=== PATIENT | male | born 1970 | race Caucasian/White ===

== ENCOUNTER 2023-01-17 07:19 | Emergency (ER) | payer OTHER, SELFPAY ==
[2023-01-17] VITALS (7 sets, daily range): BP systolic 124–172; BP diastolic 52–79; PULSE 70–88; RESP 15–26; TEMP 35.8–36.6; O2SAT 94–98; BMI 76.5
--- NOTE | ~2023-01-17 | US_ITS ---
EXAMINATION: US VENOUS ULTRASOUND WITH DOPPLER LOWER EXTREMITY, BILATERAL CLINICAL INFORMATION: Bilateral lower extremity edema COMPARISON: None available. TECHNIQUE: Ultrasound of the deep veins is performed from the hip to the calf with compression sonography and color and pulse Doppler assessment. Spectral analysis with color-flow imaging is performed. FINDINGS: Examination is limited by habitus. RIGHT: There is normal venous compression and respiratory variation and augmented flow. The visualized common femoral vein, superficial femoral vein, profunda femoral vein, popliteal vein, and the trifurcation region shows no evidence of deep venous thrombosis. There is no significant popliteal fossa cyst. LEFT: There is normal venous compression and respiratory variation and augmented flow. The visualized common femoral vein, superficial femoral vein, profunda femoral vein, popliteal vein, and the trifurcation region shows no evidence of deep venous thrombosis. There is no significant popliteal fossa cyst. US/US venous duplex LE BI IMPRESSION: No DVT demonstrated in the right or left lower extremity.
--- NOTE | ~2023-01-17 | XR_ITS ---
EXAMINATION: XR CHEST 2 VIEW CLINICAL INFORMATION: Asthma and shortness of breath. Productive cough. COMPARISON: None TECHNIQUE: PA and lateral views of the chest obtained. FINDINGS: The lungs are clear. There are no pleural effusions. The cardiomediastinal silhouette is normal. XR/XR chest 2V IMPRESSION: No acute cardiopulmonary disease.
--- NOTE | 2023-01-17 07:26 | ECG_ITS ---
Test Reason : DIFF BEATHING Blood Pressure : / mmHG Vent. Rate : 073 BPM Atrial Rate : 073 BPM P-R Int : 152 ms QRS Dur : 092 ms QT Int : 422 ms P-R-T Axes : 042 004 044 degrees QTc Int : 464 ms Normal sinus rhythm Normal ECG No previous ECGs available Referred By: Generic ED Physician Electronically Signed By:TALI HAMPTON MD
[2023-01-17 07:49] LABS: MANUAL DIFF FLAG NO
[2023-01-17 07:51] LABS: Basophils Percent Auto 0.3 % (0-2); Eosinophils Absolute Auto 0.3 X10*3/uL (0.0-0.4); Eosinophils Percent Auto 1.7 % (0-4); Hematocrit 40.3 % (42.0-52.0); Hemoglobin 12.5 g/dl (14.0-18.0); Imm Gran Abs Auto 0.07 X10*3/uL (0.00-0.03); Imm Gran Pct Auto 0.5 % (0.0-0.4); Lymphocytes Absolute Auto 2.9 X10*3/uL (1.2-4.9); Lymphocytes Percent Auto 20.1 % (20-40); Mean Corpuscular Hemoglobin 25.8 pg (27.0-33.0); Mean Corpuscular Volume 83.1 fL (80.0-98.0); Mean Platelet Volume 8.8 fL (9.4-12.4); Monocytes Percent Auto 6.9 % (2-11); Neutrophils Absolute Auto 10.2 x10*3/uL (2.0-8.3); Neutrophils Percent Auto 70.5 % (45-73); Platelet Count 222 X10*3/uL (160-400); Red Blood Count 4.85 X10*6/uL (4.60-5.80); White Blood Count 14.5 X10*3/uL (4.8-10.8)
[2023-01-17 08:04] LABS: Alanine Aminotransferase 24 U/L (0-40); Albumin Level 3.7 g/dL (3.5-5.0); Alkaline Phosphatase 61 U/L (39-117); Anion Gap 9 (12-20); Aspartate Amino Transferase 20 U/L (5-37); Bilirubin Total 0.5 mg/dL (0.0-1.0); Blood Urea Nitrogen 14 mg/dL (9-16); Carbon Dioxide 30 mmol/L (22-29); Chloride 103 mmol/L (96-108); Creatinine Clr Calc Pharmacy 249.1; Estimated Glomerular Filt Rate > 60; Glucose Random 112 mg/dL (60-115); Potassium 4.2 mmol/L (3.3-5.1); Sodium 138 mmol/L (135-145); Total Protein 7.8 g/dL (6.5-8.0)
[2023-01-17 08:08] LABS: COVID-19 Test Negative (Negative); IDNOW Serial# 08D9AD1C; IDNOW Serial# BCCEAD1C; Influenza A Negative (Negative); Influenza B2 Negative (Negative)
[2023-01-17 08:10] LABS: B Type Natriuretic Peptide < 10 pg/mL (<100)
[2023-01-17 08:11] LABS: Troponin-I High Sensitivity 2.9 ng/L (<3.5-35.0)
--- OUTSIDE RECORDS SUMMARY | 2023-01-17 08:41 | XMS_ITS | Continuity of Care Document ---
Author Name Unknown Organization [facility] Address [address] [place] [address]- Care Team Providers Care Instant Potato Processor Name Role Phone Jessa Solorzano Primary Care Physician [phone] [id number] Date(s): 03/13/21 - 04/17/21 [facility] [address] [place] [address]- Attending Physician: Delmar Flores MD Admitting Physician: Delmar Flores MD Referring Physician: Jessa Solorzano Allergies, Adverse Reactions, Alerts Substance Reaction Severity Status penicillins Active Medications Advair Diskus 100 mcg-50 mcg inhalation powder 2, puffs, Inhalation, 2 times a day, Refills 0, Maintenance, 04/10/17 21:14:05 EST Start Date: 04/10/17 Status: Ordered albuterol 0.083% inhalation solution USE 1 VIAL IN NEBULIZER EVERY 6 HOURS NEEDED FOR WHEEZING Start Date: 10/16/18 Status: Ordered albuterol-ipratropium 3 mg-0.5 mg/3 ml inhalation solution 3 mL, Neb, Every 6 hours, PRN Wheezing/Shortness of Breath, # 360 mL, 0 Refills, Maintenance, 10/19/18 12:09:29 EDT, Inhalation Solution Start Date: 10/19/18 Status: Ordered amLODIPine 10 mg oral tablet 10 mg, 1, tablet, By Mouth, Daily, instructions in syriac. 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 Refills 4, Maintenance, 02/16/18 15:21:04 EST, Route to Pharmacy Electronically, [id number] Start Date: 02/16/18 Stop Date: 07/16/18 Status: Ordered ammonium lactate 12% topical cream 1 application, Topically, 2 times a day, Maintenance, 10/16/18 17:49:14 EDT, Cream Start Date: 10/16/18 Status: Ordered atorvastatin 20 mg oral tablet 1 tablet = 20 mg, By Mouth, Daily, # 30 tablet, 0 Refills, Maintenance, 10/16/18 8:54:10 EDT, Tablet Start Date: 10/16/18 Status: Ordered BiPAP Equipment See Instructions, # 1 each, Maintenance, BiPAP 16/10, 10/28/17 14:02:10 EDT, Compound Start Date: 10/28/17 Status: Ordered Claritin 10 mg oral tablet 10 mg, 1, tablet, By Mouth, Daily, # 30 tablet, Refills 0, Maintenance, 08/24/17 11:55:21 EDT Start Date: 08/24/17 Status: Ordered Compression Stockings See Instructions, # 1 kit, Refills 2, Tot. Refills 2, Maintenance, surgical, knee length 20-30 mm Hg, 02/06/19 17:03:52 EST, Compound Start Date: 02/06/19 Status: Ordered docusate sodium 100 mg oral capsule 100 mg, 1, capsule, By Mouth, 2 times a day, # 60 capsule, Refills 0, Tot. Refills 0, Maintenance, 09/05/17 12:32:10 EDT, Print Requisition Start Date: 09/05/17 Status: Ordered Ferrous Sulfate EC 325 mg, By Mouth, Daily, Refills 0, Maintenance, 04/10/17 21:12:56 EST Start Date: 04/10/17 Status: Ordered Furosemide = 40 mg, By Mouth, 2 times a day, 0 Refills, Maintenance, 04/10/17 21:13:21 EST Start Date: 04/10/17 Status: Ordered HydrOXYzine = 25 mg, By Mouth, Daily at bedtime, Maintenance, 10/16/18 17:48:31 EDT Start Date: 10/16/18 Status: Ordered irbesartan 300 mg oral tablet 1 tablet = 300 mg, By Mouth, Daily, 0 Refills, Maintenance, 04/10/17 21:12:45 Start Date: 04/10/17 Status: Ordered Juxta Fit Compression Wraps 20-30 mm/Hg Juxta Fit Compression Wraps 20-30 mm/Hg, See Instructions, # 2 each, Refills 1, Tot. Refills 1, Maintenance, Dx: Venous Insufficiency Wear in am, remove at hs, 03/22/19 9:40:00 EST, Compound Start Date: 03/22/19 Status: Ordered Lymphedema Clinic Lymphedema Clinic, See Instructions, # 2 each, Refills 0, Tot. Refills 0, Maintenance, Please Evaluate and treat for bilateral leg lymphedema, 10/30/20 14:51:00 EDT, Supply Start Date: 10/30/20 Status: Ordered metFORMIN 500 mg oral tablet 2 tablet = 1,000 mg, By Mouth, 2 times a day, 0 Refills, Maintenance, 04/10/17 21:13:55 EST Start Date: 04/10/17 Status: Ordered montelukast 10 mg oral tablet 10 mg, 1, tablet, By Mouth, Daily in PM, # 30 tablet, Refills 0, Maintenance, 04/10/17 21:12:22 Start Date: 04/10/17 Status: Ordered PEG-3350 with Electrolytes (Eqv-NuLYTELY) oral powder for reconstitution See Instructions, as directed, # 1 each, 0 Refills, Maintenance, 03/18/21 15:48:00 EST, [facility], ok to sub for any gallon prep, as directed, 188, cm, 02/01/21 15:56:00 EST, Height, 230,kg, 02/01/21 15:56:00 EST, Dry Weight Start Date: 03/18/21 Status: Ordered pentoxifylline 400 mg oral tablet, extended release 400 mg, 1, tablet, By Mouth, 3 times a day, # 90 tablet, Refills 0, Maintenance, 10/16/18 9:01:11 EDT Start Date: 10/16/18 Status: Ordered predniSONE 10 mg oral tablet 6 tablet = 60 mg, By Mouth, Daily, 6 tabs qday for 2 days; then 5 for 2 days, then 4, then 3, then 2, then 1, # 42 tablet, 0 Refills, Maintenance, 02/01/21 18:31:00 EST, Tablet, [facility], Partial fill upon patient request if the prescript... Start Date: 02/01/21 Status: Ordered Protonix 40 mg oral delayed release tablet 1 tablet = 40 mg, By Mouth, Daily, 0 Refills, Maintenance, 04/10/17 21:13:12 Start Date: 04/10/17 Status: Ordered sertraline 100 mg oral tablet 1 tablet = 100 mg, By Mouth, Daily, # 30 tablet, 0 Refills, Maintenance, 10/16/18 8:55:35 EDT, Tablet Start Date: 10/16/18 Status: Ordered Ventolin 90 mcg Inhaler 2, puffs, Inhalation, 4 times a day, Refills 0, Maintenance, 04/10/17 21:14:11 Start Date: 04/10/17 Status: Ordered Problem List Condition Effective Dates Status Health Status Inform ant Nocturnal hypoxemia(Confirmed) 1 Active Morbid (severe) obesity due to excess calories(Confirmed) Active Severe obesity(Confirmed) Active Obstructive sleep apnea (young lt) (pediatric)(Confirmed) 2 Active 1REM related 2severe Social History Social History Type Response Smoking Status Never smoker entered on: 07/08/17 Sex Medical Equipment Implanted Date:09/05/17Target Site:Abdomen Description Quantity MRI Company Model MESH VENTRALIGHT ECHO CIR 6 - BARD ([id number]) 1 Bard Davol 29 Unknown NI:No Information Assigning Authority: FDA
--- OUTSIDE RECORDS SUMMARY | 2023-01-17 08:41 | XMS_ITS | Continuity of Care Document ---
Author Name Unknown Organization [facility] Address [address] [address]- Care Team Providers Care Transportation Planning Engineer Name Role Phone Jessa Solorzano Primary Care Physician [place] [facility] [place](s): 05/30/19 - 07/01/19 [facility] [address] [address]- [facility] Attending Physician: Golden ESPAÑA, Rosas Carlos Allergies, Adverse Reactions, Alerts Substance Reaction Severity [...] 1, tablet, By Mouth, Daily, instructions in cypriot. 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 Refills 4, Maintenance, 02/16/18 15:21:04 EST, Route to Pharmacy Electronically, [id number], [facility] 1966 Start Date: 02/16/18 Stop Date: [...] EST, Compound Start Date: 03/22/19 Status: Ordered metFORMIN 500 mg oral tablet 2 tablet = 1,000 mg, By Mouth, 2 times a day, 0 Refills, Maintenance, 04/10/17 21:13:55 EST Start Date: 04/10/17 Status: Ordered montelukast 10 mg oral tablet 10 mg, 1, tablet, By Mouth, Daily in PM, # 30 tablet, Refills 0, Maintenance, 04/10/17 21:12:22 Start Date: 04/10/17 Status: Ordered pentoxifylline 400 mg oral tablet, extended release 400 mg, 1, tablet, By Mouth, 3 times a day, # 90 tablet, Refills 0, Maintenance, 10/16/18 9:01:11 EDT Start Date: 10/16/18 Status: Ordered Protonix 40 mg oral delayed release tablet 1 tablet = 40 mg, By Mouth, Daily, 0 Refills, Maintenance, 04/10/17 21:13:12 Start Date: 04/10/17 Status: Ordered sertraline 100 mg oral tablet 1 tablet = 100 mg, By Mouth, Daily, # 30 tablet, 0 Refills, Maintenance, 10/16/18 8:55:35 EDT, Tablet Start Date: 10/16/18 Status: Ordered traZODone 50 mg oral tablet TAKE 1 TO 2 TABLETS BY MOUTH AT BEDTIME NEEDED FOR INSOMNIA Start Date: 10/16/18 Status: Ordered Ventolin 90 mcg Inhaler 2, puffs, Inhalation, 4 times a day, Refills 0, Maintenance, 04/10/17 21:14:11 Start Date: 04/10/17 Status: Ordered Problem List Condition Effective Dates Status Health Status Inform ant Nocturnal hypoxemia(Confirmed) 1 Active Morbid (severe) obesity due to excess calories(Confirmed) Active Obstructive sleep apnea (young lt) (pediatric)(Confirmed) 2 Active 1REM related 2severe Social History Social History Type Response Smoking Status Never smoker entered on: 07/08/17 Sex Medical Equipment Implanted Date:09/05/17Target Site:Abdomen Description Quantity MRI Company Model MESH VENTRALIGHT ECHO CIR 6 - BARD ([id number]) 1 Bard Davol 29 Unknown NI:No Information Assigning Authority: FDA
--- OUTSIDE RECORDS SUMMARY | 2023-01-17 08:41 | XMS_ITS | Continuity of Care Document ---
Author Name Unknown Organization [facility] Address [address] [place] [address]- Care Team Providers Care Cut Tobacco Bulker Name Role Phone Jessa Solorzano Primary Care Physician [place] [facility] [place] - 08/03/19 [facility] [address] [place] [address]- [facility] Attending Physician: Tito Horvath MD Admitting Physician: Tito Horvath MD Referring Physician: Tito Horvath MD Allergies, Adverse Reactions, Alerts Substance Reaction Severity [...] 1, tablet, By Mouth, Daily, instructions in hebrew. 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 Refills 4, Maintenance, 02/16/18 15:21:04 EST, Route to Pharmacy Electronically, [id number], [facility] 1966 Start Date: 02/16/18 Stop [...] MESH VENTRALIGHT ECHO CIR 6 - BARD ([id number]) 1 Bard Davol 29 Unknown NI:No Information Assigning Authority: FDA
--- OUTSIDE RECORDS SUMMARY | 2023-01-17 08:41 | XMS_ITS | Continuity of Care Document ---
Author Name Unknown Organization [facility] ter Address [address] [place] [address]- Care Team Providers Care Daycare Worker Name Role Phone Jessa Solorzano [id number] Date[facility] 03/31/21 - 11/05/[address] [address]- Attending Physician: Delmar Flores MD Admitting Physician: Delmar Flores MD Referring Physician: Janis Funez Allergies, Adverse Reactions, Alerts Substance Reaction Severity Status penicillins Active Medications Advair Diskus 500 mcg-50 mcg inhalation powder 1, inhalation, Inhalation, 2 times a day, rinse mouth and throat after use, # 1 each, Refills 11, Tot. Refills 11, Maintenance, 08/24/21 15:39:00 EDT, Powder, Route to Pharmacy Electronically, [id number], [facility]... Start Date: 08/24/21 Status: Ordered Albuterol (Eqv-ProAir HFA) 90 mcg/inh inhalation aerosol 2 puffs, Inhalation, Every 6 hours, # 1 each, 11 Refills, Maintenance, 08/24/21 15:39:00 EDT, [facility], Partial fill upon patient request if the prescription is for a schedule II opioid drug., 2 puffs Inhalation Every 6 hours, 175, cm, He... Start Date: 08/24/21 Status: Ordered albuterol 0.083% inhalation solution USE 1 VIAL IN NEBULIZER EVERY 6 HOURS NEEDED FOR WHEEZING Start Date: 10/16/18 Status: Ordered albuterol 0.083% inhalation solution 3 mL = 2.5 mg, Inhalation, Every 6 hours, PRN for wheezing/shortness of breath, # 60 each, 11 Refills, Maintenance, 08/24/21 15:39:00 EDT, Solution, [facility], Partial fill upon patient request if the prescription is for a schedule II opio... Start Date: 08/24/21 Status: Ordered albuterol-ipratropium 3 mg-0.5 mg/3 ml inhalation solution 3 mL, Neb, Every 6 hours, PRN Wheezing/Shortness of Breath, # 360 mL, 0 Refills, Maintenance, 10/19/18 12:09:29 EDT, Inhalation Solution Start Date: 10/19/18 Status: Ordered amLODIPine 10 mg oral tablet 10 mg, 1, tablet, By Mouth, Daily, instructions in macanese. 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 Refills 4, Maintenance, 02/16/18 15:21:04 EST, Route to Pharmacy Electronically, [id number], [facility] 1966 Start Date: 02/16/18 [...] 17:48:31 EDT Start Date: 10/16/18 Status: Ordered Incruse Ellipta 62.5 mcg/inh inhalation powder 1 each, Inhalation, Every 24 hours, doses should be taken at least 24 hours apart, # 30 each, 11 Refills, Maintenance, 08/24/21 15:39:00 EDT, Powder, [facility], Partial fill upon patient request if the prescription is for a schedule II opi... Start Date: 08/24/21 Status: Ordered irbesartan 300 mg oral tablet [...] EST, Compound Start Date: 03/22/19 Status: Ordered loratadine 10 mg oral tablet 10 mg, 1, tablet, By Mouth, Daily, # 30 tablet, Refills 11, Tot. Refills 11, Maintenance, 08/24/21 15:39:00 EDT, Route to Pharmacy Electronically, [facility], Partial fill upon patient request if the prescription is for a schedule II opioid... Start Date: 08/24/21 Status: Ordered Lymphedema Clinic Lymphedema Clinic, See [...] each, 0 Refills, Maintenance, 03/18/21 15:48:00 EST, [facility], ok to sub for any [...] 0 Refills, Maintenance, 02/01/21 18:31:00 EST, Tablet, [facility], Partial fill upon patient request [...] EDT, Tablet Start Date: 10/16/18 Status: Ordered Singulair 10 mg oral tablet 10 mg, 1, tablet, By Mouth, Daily, # 30 tablet, Refills 12, Tot. Refills 12, Maintenance, 08/24/21 15:39:00 EDT, Route to Pharmacy Electronically, [facility], Partial fill upon patient request if the prescription is for a schedule II opioid... Start Date: 08/24/21 Status: Ordered Ventolin 90 mcg Inhaler 2, [...] Status Never smoker entered on: 07/08/17 Sex Implantable Device List Procedure Provider Procedure Date Device Type Site Repair Hernia Ventral Laparoscopic Car Jane MD 09/05/17 Unknown Abdomen Device Identifier Serial Number Lot or Batch Number Manufacturing Date Expiration Date Distinct Identification Code MRI Safety Implantable Status Assigning Authority Unknown [id number] Unknown Unknown 09/05/17 Unknown Unknown Active Unknown Care Team Personnel Name: Jessa Solorzano Address: [address] [place] [address]
--- OUTSIDE RECORDS SUMMARY | 2023-01-17 08:41 | XMS_ITS | Continuity of Care Document ---
Author Name Unknown Organization [facility] Address [address] [address]- Care Team Providers Care Career Development Coordinator Name Role Phone Jessa Solorzano Primary Care Physician [place] [facility] [place](s): 06/12/19 - 06/22/19 [facility] [address] [address]- [facility] Attending Physician: Abundio Gastelum Admitting Physician: Abundio Gastelum Referring Physician: AdmtrAbundio Allergies, Adverse Reactions, Alerts Substance Reaction Severity [...] 1, tablet, By Mouth, Daily, instructions in nepali. 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 Refills 4, Maintenance, 02/16/18 15:21:04 EST, Route to Pharmacy Electronically, [id number], [facility] 1966 Start Date: 02/16/18 Stop [...] MESH VENTRALIGHT ECHO CIR 6 - BARD ([id number]) 1 Bard Davol 29 Unknown NI:No Information Assigning Authority: FDA
--- OUTSIDE RECORDS SUMMARY | 2023-01-17 08:41 | XMS_ITS | Continuity of Care Document ---
Author Name Unknown Organization [facility] Address [address] [place] [address]- Care Team Providers Care Information Security Systems Instructor Name Role Phone Keiry ROJAS, Nathaly Primary Care Physician [phone] [id number] Date(s): 09/14/22 - 12/29/22 [facility] [address] [place], [place] [address] Discharge Disposition: A-D/C Home Attending Physician: Yassine Robbins MD Admitting Physician: Yassine Robbins MD Referring Physician: Jeny Cordova NP Allergies, Adverse Reactions, Alerts Substance Reaction Severity Status penicillins Active Medications Advair Diskus 500 mcg-50 mcg inhalation powder 1, inhalation, Inhalation, 2 times a day, rinse mouth and throat after use, # 1 each, Refills 11, Tot. Refills 11, Maintenance, 03/29/22 14:21:00 EST, Powder, Route to Pharmacy Electronically, [id number], [facility], 188, cm, 01... Start Date: 03/29/22 Status: Ordered Albuterol (Eqv-ProAir HFA) 90 mcg/inh inhalation aerosol 2 puffs, Inhalation, Every 6 hours, # 6.7 Gm, 11 Refills, Maintenance, 03/29/22 14:21:00 EST, [facility], Partial fill upon patient request if the prescription is for a schedule II opioid drug., 2 puffs Inhalation Every 6 hours, 188,... Start Date: 03/29/22 Status: Ordered albuterol 0.083% inhalation solution 3 mL = 2.5 mg, Inhalation, Every 6 hours, PRN for wheezing/shortness of breath, # 360 mL, 11 Refills, Maintenance, 03/29/22 14:21:00 EST, Solution, [facility], Partial fill upon patient request if the prescription is for a schedule II... Start Date: 03/29/22 Status: Ordered albuterol 0.083% inhalation solution USE [...] 1, tablet, By Mouth, Daily, instructions in wolof. 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 Refills 4, Maintenance, 02/16/18 15:21:04 EST, Route to Pharmacy Electronically, [id number], [facility] 1966 Start Date: 02/16/18 Stop Date: [...] Maintenance, surgical, knee length 20-30 mm Hg, 12/10/19 17:03:52 EST, Compound Start Date: 02/06/19 Status: [...] taken at least 24 hours apart, # 1 each, 11 Refills, Maintenance, 03/29/22 14:21:00 EST, Powder, [facility], Partial fill upon patient request if the prescription is for a schedule I... Start Date: 03/29/22 Status: Ordered irbesartan 300 mg oral tablet [...] tablet, Refills 11, Tot. Refills 11, Maintenance, 03/29/22 14:21:00 EST, Route to Pharmacy Electronically, [facility], Partial fill upon patient request if the prescription is for a schedule II... Start Date: 03/29/22 Status: Ordered Lymphedema Clinic [facility], See [...] each, 0 Refills, Maintenance, 03/18/21 15:48:00 EST, [address] to sub for any gallon prep, as [...] tablet, Refills 11, Tot. Refills 11, Maintenance, 03/29/22 14:21:00 EST, Route to Pharmacy Electronically, [facility], Partial fill upon patient request if the prescription is for a schedule II... Start Date: 03/29/22 Status: Ordered Ventolin 90 mcg Inhaler 2, puffs, Inhalation, 4 times a day, Refills 0, Maintenance, 04/10/17 21:14:11 Start Date: 04/10/17 Status: Ordered Problem List Condition Confirmation Course Effective Dates Status Health St atus Informant Nocturnal hypoxemia 1 Confirmed Active Morbid (severe) obesity due to excess calories Confirmed Active Severe obesity Confirmed Active Obstructive sleep apnea (adult) (pediatric) 2 Confirmed Active 1REM related 2severe Social History Social History Type Response Smoking Status Never smoker entered on: 07/08/17 Sex Implantable Device List Procedure Provider Procedure Date Device Type Site Repair Hernia Ventral Laparoscopic Car Jane MD 09/05/17 Unknown Abdomen Device Identifier Serial Number Lot or Batch Number Manufacturing Date Expiration Date Distinct Identification Code MRI Safety Implantable Status Assigning Authority Unknown [id number] Unknown Unknown 09/05/17 Unknown Unknown Active Unknown Patient Care team information Care Team Personnel Name: Jailene Mccain RN Position: [facility] Nurse Member Role: Primary Care Nurse Name: Eli Josue RN Position: [facility] RN Member Role: Primary Care Nurse Name: Nathaly Ricci NP Position: Reference Physician Member Role: PCP Address: Address: [address] [place] [address]- Name: Yassine Robbins MD Position: [facility] Physician - Oncology Med Service: Hematology & Oncology Member Role: Admitting Physician Address: Address: [address] [place] [address] [place] [address]- Care Team Related Persons Name: SHIRLEY GURROLA Address: home [address] [facility] [address] [place] [address]
--- OUTSIDE RECORDS SUMMARY | 2023-01-17 08:41 | XMS_ITS | Continuity of Care Document ---
Author Name Unknown Organization [facility] Address [address] [address]- Care Team Providers Care Analyst Competitive Intelligence Name Role Phone Jessa Solorzano Primary Care Physician [place] [facility] [place]21 - 03/26/22 [facility] [address] [facility] [address] [place], [place] [address] Attending Physician: Sebastian Villarreal MD Admitting Physician: Sebastian Villarreal MD Referring Physician: Jessa Solorzano Allergies, Adverse Reactions, Alerts Substance Reaction Severity Status penicillins Active Medications Advair Diskus 500 mcg-50 mcg inhalation powder 1, inhalation, Inhalation, 2 times a day, rinse mouth and throat after use, # 1 each, Refills 11, Tot. Refills 11, Maintenance, 08/24/21 15:39:00 EDT, Powder, Route to Pharmacy Electronically, [id number], [facility] 196... Start Date: 08/24/21 Status: Ordered Albuterol (Eqv-ProAir HFA) 90 mcg/inh inhalation aerosol 2 puffs, Inhalation, Every 6 hours, # 1 each, 11 Refills, Maintenance, 08/24/21 15:39:00 EDT, [facility], Partial fill upon patient request [...] 11 Refills, Maintenance, 08/24/21 15:39:00 EDT, Solution, [facility], Partial fill upon patient request [...] 1, tablet, By Mouth, Daily, instructions in yoruba. 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 Refills 4, Maintenance, 02/16/18 15:21:04 EST, Route to Pharmacy Electronically, [id number], [facility] 1966 Start Date: 02/16/18 [...] 11 Refills, Maintenance, 08/24/21 15:39:00 EDT, Powder, [facility], Partial fill upon patient request [...] 08/24/21 15:39:00 EDT, Route to Pharmacy Electronically, [facility], Partial fill upon patient request [...] each, 0 Refills, Maintenance, 03/18/21 15:48:00 EST, [facility], ok to sub for any gallon prep, [...] 08/24/21 15:39:00 EDT, Route to Pharmacy Electronically, [facility], Partial fill upon patient request [...] MRI Safety Implantable Status Assigning Authority Unknown [id number] Unknown Unknown 09/05/17 Unknown Unknown Active Unknown Patient Care team information Care Team Personnel Name: Jessa Solorzano Position: [facility] Outreach Member Role: PCP Address: Address: [address] [place] [address]- Name: Jailene Mccain RN Position: [facility] PCO RN Member Role: Primary Care Nurse Name: Eli Josue RN Position: [facility] RN Member Role: Primary Care Nurse Care Team Related Persons Name: SHIRLEY GURROLA Address: home [address] [place] [address]
--- OUTSIDE RECORDS SUMMARY | 2023-01-17 08:41 | XMS_ITS | Continuity of Care Document ---
Author Name Unknown Organization [facility] Address [address] [place] [address]- Care Team Providers Care Corporate Quality Assurance Manager Name Role Phone Jessa Solorzano Primary Care Physician [place] [facility] [place] 10/15/19 - 11/14/19 [facility] [address] [place] [address]- [facility] Attending Physician: Abundio Gastelum Admitting Physician: AdmAbundio lux Referring Physician: AdmtrAbundio Allergies, Adverse Reactions, Alerts [...] 1, tablet, By Mouth, Daily, instructions in arabic. 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 Refills 4, Maintenance, 02/16/18 15:21:04 EST, Route to Pharmacy Electronically, [id number], [facility] 1967 Start Date: 02/16/18 Stop [...] MESH VENTRALIGHT ECHO CIR 6 - BARD ([id number]) 1 Bard Davol 29 Unknown NI:No Information Assigning Authority: FDA
--- OUTSIDE RECORDS SUMMARY | 2023-01-17 08:41 | XMS_ITS | Continuity of Care Document ---
Author Name Unknown Organization [facility] Address [address] [place] [address]- Care Team Providers Care Eligibility Manager Name Role Phone Jessa Solorzano Primary Care Physician [phone] [place] [facility] [place] 10[place]22/20 [facility] [address] [place], [place] [address] Attending Physician: Tito Horvath MD Admitting Physician: Tito Horvath MD Referring Physician: Jessa Solorzano Allergies, Adverse [...] 1, tablet, By Mouth, Daily, instructions in bahamian. 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 Refills 4, Maintenance, 02/16/18 15:21:04 EST, Route to Pharmacy Electronically, [id number], [facility] 1966 Start Date: 02/16/18 Stop Date: [...] lt) (pediatric)(Confirmed) 2 Active 1REM related 2severe Vital Signs Most recent to oldest [Reference Range]: 1 Height 188 cm (10/15/20 11:35 AM) Oxygen Saturation [94-100 %] 98 % (10/15/20 11:35 AM) Pulse Rate [55-90 bpm] 73 bpm (10/15/20 11:35 AM) Blood Pressure [90-138/55-84 mm Hg] 130/ 90mm Hg (10/15/20 11:35 AM) Blood pressure sites Arm, left (10/15/20 11:35 AM) Weight Obtained Via Patient/family state d (10/15/20 11:35 AM) Social History Social History Type Response Smoking Status Never smoker entered on: 07/08/17 Sex Medical Equipment Implanted Date:09/05/17Target Site:Abdomen Description Quantity MRI Company Model MESH VENTRALIGHT ECHO CIR 6 - BARD ([id number]) 1 Bard Davol 29 Unknown NI:No Information Assigning Authority: FDA
--- OUTSIDE RECORDS SUMMARY | 2023-01-17 08:41 | XMS_ITS | Continuity of Care Document ---
Author Name Unknown Organization [facility] ter Address [address] [place] [address]- Care Team Providers Care Teletypesetter Monitor Name Role Phone Jessa Solorzano Primary Care Physician [id number] Date(s): 08/05/21 - 08/05/[address] [address]- Encounter Diagnosis Left shoulder pain(Final) - 08/05/21 Discharge Disposition: A-D/C Home Attending Physician: Venu Estrada MD Admitting Physician: Venu Estrada MD Referring Physician: Not on Staff, Referring MD Allergies, Adverse Reactions, Alerts Substance Reaction [...] 1, tablet, By Mouth, Daily, instructions in uruguayan. 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 Refills 4, Maintenance, 02/16/18 15:21:04 EST, Route to Pharmacy Electronically, [id number], [facility] 1967 Start Date: 02/16/18 Stop [...] each, 0 Refills, Maintenance, 03/18/21 15:48:00 EST, [facility], ok to sub for any gallon prep, [...] 0 Refills, Maintenance, 02/01/21 18:31:00 EST, Tablet, [facility], Partial fill upon patient [...] lt) (pediatric)(Confirmed) 2 Active 1REM related 2severe Results Radiology Reports * Exam Date Time Procedure Performing Provider Status 08/05/21 11:18 AM Forearm 2 Views Left Anthony , [place]; A ut (Verified) Notes: (Forearm 2 Views Left) Reason For Exam: with Pain;Trauma RESULT: Forearm 2 Views Left Forearm 2 Views Left Hx of Present Illness: Pt reports he was trying to get a broom in the corner and was having troublereaching it when he went into the wall and hit his left arm and hurt his right knee. Pt denies falling. Pt has a abrasion to left forearm and is having trouble lifting; Reason: Trauma; with Pain; Clinical Question(s): Fracture; Special Instructions: This is a protocol film a COMPARISON: None. FINDINGS: No fractures or bone lesions. The visualized joint spaces are normal. There is soft tissue edema/swelling in the dorsal aspect of the forearm. IMPRESSION: Soft tissue swelling dorsally in the forearm with no acute displaced fracture. I have personally reviewed the images and I agree with this report. WSN: [id number] Ordering Physician: Thomas Sen Dictated By: Lamonte Thompson DO Dictated Date/Time: 08/05/21 11:52 a Reviewed By: Estelita Gambino MD Signed By: Estelita Gambino MD Signed Date/Time: 08/05/21 11:57 am Transcribed By: JOAQUINA Transcribed Date/Time: 08/05/21 11:36 am * Exam Date Time Procedure Performing Provider Status 08/05/21 11:18 AM Knee 1 or 2 Views Right Hillary Cruza ; Auth (Verified) Notes: (Knee 1 or 2 Views Right) Reason For Exam: with Pain;Trauma RESULT: Knee 1 or 2 Views Right Knee 2 Views Right REASON: Trauma; with Pain; Hx of Present Illness: Pt reports he was trying to get a broom in the corner and was having troublereaching it when he went into the wall and hit his left arm and hurt his right knee. Pt denies falling. Pt has a abrasion to left forearm and is having trouble lifting COMPARISON: None. FINDINGS: No acute or healing fracture, dislocation or bone lesion. Mild joint space narrowing of the medial compartment. No osteochondral defects or intra-articular loose bodies. Enthesophyte at the quadriceps tendon and patellar ligament. No evidence of joint effusion. IMPRESSION: No acute abnormality. I have personally reviewed the images and I agree with this report. WSN: [id number] Ordering Physician: Thomas Sen Dictated By: Fady Mcnamara DO Dictated Date/Time: 08/05/21 11:29 a Reviewed By: Pacheco Santana MD Signed By: Pacheco Santana MD Signed Date/Time: 08/05/21 11:34 am Transcribed By: JOAQUINA Transcribed Date/Time: 08/05/21 11:27 am * Exam Date Time Procedure Performing Provider Status 08/05/21 11:18 AM Shoulder Min 2 Views Left Neha Cruz; Auth (Verified) Notes: (Shoulder Min 2 Views Left) Reason For Exam: with Pain;Trauma RESULT: Shoulder Min 2 Views Left Humerus Min 2 Views Left, Shoulder Min 2 Views Left Hx of Present Illness: Pt reports he was trying to get a broom in the corner and was having troublereaching it when he went into the wall and hit his left arm and hurt his right knee. Pt denies falling. Pt has a abrasion to left forearm and is having trouble lifting; Reason: Trauma; with Pain; Clinical Question(s): Fracture COMPARISON: None. FINDINGS: No acute displaced fracture or dislocation. There is an os acromiale. Mild degenerative changes of the AC joint. Glenohumeral joint space appears maintained. No evidence of calcific tendinopathy of the rotator cuff. The visualized left lung is clear. IMPRESSION: No acute osseous abnormality. Mild acromioclavicular degenerative change. I have personally reviewed the images and I agree with this report. WSN: [id number] Ordering Physician: Thomas Sen Dictated By: Lamonte Thompson DO Dictated Date/Time: 08/05/21 11:51 a Reviewed By: Estelita Gambino MD Signed By: Estelita Gambino MD Signed Date/Time: 08/05/21 11:56 am Transcribed By: JOAQUINA Transcribed Date/Time: 08/05/21 11:31 am * Exam Date Time Procedure Performing Provider Status 08/05/21 11:18 AM Humerus Min 2 Views Left Anthony , Din a; Auth (Verified) Notes: (Humerus Min 2 Views Left) Reason For Exam: with Pain;Trauma RESULT: Humerus Min 2 Views Left Humerus Min 2 Views Left, Shoulder Min 2 Views Left Hx of Present Illness: Pt reports he was trying to get a broom in the corner and was having troublereaching it when he went into the wall and hit his left arm and hurt his right knee. Pt denies falling. Pt has a abrasion to left forearm and is having trouble lifting; Reason: Trauma; with Pain; Clinical Question(s): Fracture COMPARISON: None. FINDINGS: No acute displaced fracture or dislocation. There is an os acromiale. Mild degenerative changes of the AC joint. Glenohumeral joint space appears maintained. No evidence of calcific tendinopathy of the rotator cuff. The visualized left lung is clear. IMPRESSION: No acute osseous abnormality. Mild acromioclavicular degenerative change. I have personally reviewed the images and I agree with this report. WSN: [id number] Ordering Physician: Thomas Sen Dictated By: Lamonte Thompson DO Dictated Date/Time: 08/05/21 11:51 a Reviewed By: Estelita Gambino MD Signed By: Estelita Gambino MD Signed Date/Time: 08/05/21 11:56 am Transcribed By: JOAQUINA Transcribed Date/Time: 08/05/21 11:31 am * Exam Date Time Procedure Performing Provider Status 08/05/21 11:18 AM Chest 2 Views Frontal and Lat Anthony , [place]; Auth (Verified) Notes: (Chest 2 Views Frontal and Lat) Reason For Exam: Shortness of Breath, Fever;Other: RESULT: Chest 2 Views Frontal and Lat Chest 2 Views Frontal and Lat Hx of Present Illness: Pt reports he was trying to get a broom in the corner and was having troublereaching it when he went into the wall and hit his left arm and hurt his right knee. Pt denies falling. Pt has a abrasion to left forearm and is having trouble lifting; Reason: Other:; Shortness of Breath, Fever; Clinical Question(s): Pneumonia COMPARISON: Multiple priors, most recent 02/01/2021 FINDINGS: LINES AND TUBES: None. LUNGS AND PLEURA: Clear lungs. Normal pulmonary vascularity. No pleural effusion. No pneumothorax. HEART, MEDIASTINUM AND RIA: Heart is normal in size. Normal upper mediastinal and hilar contour. BONES AND SOFT TISSUES: No acute abnormality. IMPRESSION: No acute abnormality. I have personally reviewed the images and I agree with this report. WSN: [id number] Ordering Physician: Lowell Lacey Dictated By: Lamonte Thompson DO Dictated Date/Time: 08/05/21 11:28 a Reviewed By: Pacheco Santana MD Signed By: Pacheco Santana MD Signed Date/Time: 08/05/21 11:33 am Transcribed By: JOAQUINA Transcribed Date/Time: 08/05/21 11:24 am Vital Signs Most recent to oldest [Reference Range]: 1 2 3 Height 188 cm (08/05/21 1:05 PM) 188 cm (08/05/21 10:11 AM) 188 cm (08/05/21 9:51 AM) Weight 263.2 kg (08/05/21 1:05 PM) 263.2 kg (08/05/21 10:11 AM) 263.2 kg (08/05/21 9:51 AM) Oxygen Saturation [94-100 %] 98 % (08/05/21 3:00 PM) 98 % (08/05/21 1:05 PM) 100 % (08/05/21 9:51 AM) Pulse Rate [55-90 bpm] 77 bpm (08/05/21 3:00 PM) 78 bpm (08/05/21 1:05 PM) 81 bpm (08/05/21 9:51 AM) Body Mass Index [18.5-24.99] 74.47 *>HHI* (08/05/21 1:05 PM) 74.47 *>HHI* (08/05/21 9:51 AM) Blood Pressure [90-138/55-84 mm Hg] 159/98mm Hg *H* (08/05/21 3:00 PM) 163/88mm Hg *H* (08/05/21 1:05 PM) 177/73mm Hg *H* (08/05/21 9:51 AM) Respiratory Rate [16-30 br/min] 22 br/min (08/05/21 3:00 PM) 22 br/min (08/05/21 1:05 PM) 20 br/min (08/05/21 9:51 AM) Temperature [96.8-100.4 DegF] 98.7 DegF (08/05/21 9:51 AM) Mode of Delivery (Oxygen) Room air (08/05/21 3:00 PM) Room air (08/05/21 1:05 PM) Room air (08/05/21 9:51 AM) Blood pressure sites Arm, right (08/05/21 3:00 PM) Arm, right (08/05/21 1:05 PM) Arm, right (08/05/21 9:51 AM) Temperature Route Oral (08/05/21 9:51 AM) Dry Weight 263.2 kg (08/05/21 1:05 PM) 263.2 kg (08/05/21 10:11 AM) 263.2 kg (08/05/21 9:51 AM) Weight Obtained Via Standing scale (08/05/21 9:51 AM) Dry Weight Obtained Via Standing scale (08/05/21 9:51 AM) Social History Social History Type Response Smoking Status Never smoker entered on: 07/08/17 Sex Medical Equipment Implanted Date:09/05/17Target Site:Abdomen Description Quantity MRI Company Model MESH VENTRALIGHT ECHO CIR 6 - BARD ([id number]) 1 Bard Davol 29 Unknown NI:No Information Assigning Authority: FDA
--- OUTSIDE RECORDS SUMMARY | 2023-01-17 08:42 | XMS_ITS | Continuity of Care Document ---
Author Name Unknown Organization [facility] Address [address] [place] [address]- Care Team Providers Care Counter Intelligence Technician Name Role Phone Jessa Solorzano Primary Care Physician [id number] Date(s): 09/14/20 - 09/14/[address] [address]- Encounter Diagnosis Acute asthma exacerbation(Final) - 09/14/20 Discharge Disposition: A-D/C Home Attending Physician: Gerardo Stovall DO Admitting Physician: Gerardo Stovall DO Referring Physician: Not on Staff, Referring MD [...] 1, tablet, By Mouth, Daily, instructions in british. 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 Refills 4, Maintenance, 02/16/18 15:21:04 EST, Route to Pharmacy Electronically, [id number], [facility] 1966 Start Date: 02/16/18 Stop Date: [...] EDT, Compound Start Date: 10/28/17 Status: Ordered Cepacol Extra Strength Sore Throat & Cough 7.5 mg-5 mg oral lozenge 2 lozenge, By Mouth, Every 4 hours, for 7 days, # 18 each, 0 Refills, Acute 09/21/20 20:16:00 EDT, 09/14/20 20:16:00 EDT, [facility], Partial fill upon patient request if the prescription is for a schedule II opioid drug., 2 lozenge By Mout... Start Date: 09/14/20 Stop Date: 09/21/20 Status: Ordered Claritin 10 mg oral tablet [...] EDT Start Date: 10/16/18 Status: Ordered predniSONE 20 mg oral tablet 3 tablet = 60 mg, By Mouth, Daily, for 4 days, # 12 tablet, 0 Refills, Acute 09/18/20 19:52:00 EDT,09/14/20 19:52:00 EDT, Tablet, [facility] 1965, Partial fill upon patient request if the prescription is for a schedule II opioid drug., 188, cm,... Start Date: 09/14/20 Stop Date: 09/18/20 Status: Ordered Protonix 40 mg oral delayed [...] Exam Date Time Procedure Performing Provider Status 09/14/20 8:11 PM Chest 2 Views Frontal and Lat Aisha To; Auth (Verified) Notes: (Chest 2 Views Frontal and Lat) Reason For Exam: Shortness of Breath, Fever;Other: RESULT: Chest 2 Views Frontal and Lat Chest 2 Views Frontal and Lat Hx of Present Illness: Reason: Other:; Shortness of Breath, Fever; Clinical Question(s): Pneumonia COMPARISON: 10/16/2018 FINDINGS: LINES AND TUBES: None. LUNGS AND PLEURA: Mild perihilar interstitial prominence. No consolidation. No pleural effusion. No pneumothorax. HEART, MEDIASTINUM AND RIA: Heart is normal in size. Normal upper mediastinal and hilar contour. BONES AND SOFT TISSUES: No acute abnormality. IMPRESSION: Mild perihilar interstitial prominence suggestive of viral/atypical pneumonia. WSN: [id number] Ordering Physician: Gerardo Stovall Dictated By: Abraham Yen DO Dictated Date/Time: 09/14/20 8:11 pm Reviewed By: Abraham Yen DO Signed By: Abraham Yen DO Signed Date/Time: 09/14/20 8:11 pm Transcribed By: JOAQUINA Transcribed Date/Time: 09/14/20 8:11 pm Vital Signs Most recent to oldest [Reference Range]: 1 2 Height 188 cm (09/14/20 8:19 PM) 188 cm (09/14/20 6:17 PM) Weight 260.6 kg (09/14/20 8:19 PM) 260.6 kg (09/14/20 6:17 PM) Oxygen Saturation [94-100 %] 98 % (09/14/20 8:19 PM) 97 % (09/14/20 6:17 PM) Pulse Rate [55-90 bpm] 71 bpm (09/14/20 8:19 PM) 86 bpm (09/14/20 6:17 PM) Body Mass Index [18.5-24.99] 73.73 *>HHI* (09/14/20 8:19 PM) Blood Pressure [90-138/55-84 mm Hg] 160/ 69mm Hg *H* (09/14/20 8:19 PM) 146/82mm Hg *H* (09/14/20 6:17 PM) Respiratory Rate [16-30 br/min] 20 br/mi n (09/14/20 8:19 PM) 26 br/min (09/14/20 6:17 PM) Temperature [96.8-100.4 DegF] 98.3 DegF (09/14/20 8:19 PM) 98.8 DegF (09/14/20 6:17 PM) Mode of Delivery (Oxygen) Room air (09/14/20 8:19 PM) Room air (09/14/20 6:17 PM) Blood pressure sites Arm, left (09/14/20 8:19 PM) Arm, left (09/14/20 6:17 PM) Temperature Route Oral (09/14/20 8:19 PM) Oral (09/14/20 6:17 PM) Dry Weight 260.6 kg (09/14/20 8:19 PM) 260.6 kg (09/14/20 6:17 PM) Weight Obtained Via Standing scale (09/14/20 6:17 PM) Dry Weight Obtained Via Standing scale (09/14/20 6:17 PM) Social History Social History Type Response Smoking Status Never smoker entered on: 07/08/17 Sex Medical Equipment Implanted Date:09/05/17Target Site:Abdomen Description Quantity MRI Company Model MESH VENTRALIGHT ECHO CIR 6 - BARD ([id number]) 1 Bard Davol 29 Unknown NI:No Information Assigning Authority: FDA
--- OUTSIDE RECORDS SUMMARY | 2023-01-17 08:42 | XMS_ITS | Continuity of Care Document ---
Author Name Unknown Organization [facility] Address [address] [place] [address]- Care Team Providers Care Machine Tool Mechanic Name Role Phone Jessa Solorzano Primary Care Physician [phone] [place] [facility] [place] - 06/28/19 [facility] [address] [address]- [facility] Encounter Diagnosis Obstructive sleep apnea (adult) (pediatric)(Discharge Diagnosis) - 06/21/19 Morbid (severe) obesity due to excess calories(Discharge Diagnosis) - 06/21/19 Attending Physician: Lowell Turcios MD Admitting Physician: Lowell Turcios MD Referring Physician: Jessa Solorzano Allergies, Adverse [...] 1, tablet, By Mouth, Daily, instructions in frisian. 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 Refills 4, Maintenance, 02/16/18 15:21:04 EST, Route to Pharmacy Electronically, [id number], [facility] 1966 Start Date: 02/16/18 [...] lt) (pediatric)(Confirmed) 2 Active 1REM related 2severe Diagnosis Diagnosis Type Effective Dates Health Status Clinical Service Informant Obstructive sleep apnea (adult) (pediatric) Discharge Diagnosis 06/21/19 Morbid (severe) obesity due to excess calories Discharge Diagnosis 06/21/19 Social History Social History Type Response Smoking Status Never smoker entered on: 07/08/17 Sex Medical Equipment Implanted Date:09/05/17Target Site:Abdomen Description Quantity MRI Company Model MESH VENTRALIGHT ECHO CIR 6 - BARD ([id number]) 1 Bard Davol 29 Unknown NI:No Information Assigning Authority: FDA
--- OUTSIDE RECORDS SUMMARY | 2023-01-17 08:42 | XMS_ITS | Continuity of Care Document ---
Author Name Unknown Organization [facility] Address [address] [place] [address]- Care Team Providers Care Orthodontic Technician Assistant Name Role Phone Jessa Solorzano Primary Care Physician [place] [facility] [place] 02/17/19 - 06/17/19 [facility] [address] [place] [address]- [facility] Attending Physician: Tito Horvath MD Admitting Physician: Tito Horvath MD Allergies, Adverse Reactions, [...] 1, tablet, By Mouth, Daily, instructions in amharic. 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 Refills 4, Maintenance, 02/16/18 15:21:04 EST, Route to Pharmacy Electronically, [id number], [facility] 1966 Start Date: 02/16/18 Stop [...] due to excess calories(Confirmed) Active Obstructive sleep apnea(Confirmed) Active Obstructive sleep apnea (young lt) (pediatric)(Confirmed) Active 1REM related Social History Social History Type Response Smoking Status Never smoker entered on: 07/08/17 Sex Medical Equipment Implanted Date:09/05/17Target Site:Abdomen Description Quantity MRI Company Model MESH VENTRALIGHT ECHO CIR 6 - BARD ([id number]) 1 Bard Davol 29 Unknown NI:No Information Assigning Authority: FDA
--- OUTSIDE RECORDS SUMMARY | 2023-01-17 08:42 | XMS_ITS | Continuity of Care Document ---
Author Name Unknown Organization [facility] Address [address] [place] [address]- Care Team Providers Care Box Finisher Name Role Phone Jessa Solorzano Primary Care Physician [phone] [place] [facility] [place] 10/29/19 - 11/28/19 [facility] [address] [place] [address]- [facility] Attending Physician: Abundio Gastelum Admitting Physician: Abundio Gastelum Referring Physician: Abundio Gastelum Allergies, Adverse Reactions, Alerts Substance Reaction Severity [...] 1, tablet, By Mouth, Daily, instructions in tamazight. 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 Refills 4, Maintenance, 02/16/18 15:21:04 EST, Route to Pharmacy Electronically, [id number], [facility] 1966 Start Date: 02/16/18 Stop [...] MESH VENTRALIGHT ECHO CIR 6 - BARD ([id number]) 1 Bard Davol 29 Unknown NI:No Information Assigning Authority: FDA
--- OUTSIDE RECORDS SUMMARY | 2023-01-17 08:42 | XMS_ITS | Continuity of Care Document ---
Author Name Unknown Organization [facility] Address [address] [place] [address]- Care Team Providers Care Trumpet Teacher Name Role Phone Jessa Solorzano Primary Care Physician [phone] [id number] Date(s): 02/01/21 - 02/01/[address] [address]- Discharge Disposition: A-D/C Home Attending Physician: Fran Bloom MD Admitting Physician: Fran Bloom MD Referring Physician: Not on Staff, Referring [...] 1, tablet, By Mouth, Daily, instructions in latvian. 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 Refills 4, Maintenance, 02/16/18 15:21:04 EST, Route to Pharmacy Electronically, [id number], [facility] 1967 Start Date: 02/16/18 Stop [...] Print Requisition Start Date: 09/05/17 Status: Ordered doxycycline monohydrate 100 mg oral capsule 1 capsule = 100 mg, By Mouth, 2 times a day, for 10 days, # 20 capsule, 0 Refills, Acute 02/11/21 18:31:00 EST, 02/01/21 18:31:00 EST, Capsule, [facility], Partial fill upon patient request if the prescription is for a schedule II opioid . Start Date: 02/01/21 Stop Date: 02/11/21 Status: Ordered Ferrous Sulfate EC 325 mg, [...] tablet, 0 Refills, Maintenance, 02/01/21 18:31:00 EST, [facility], Partial fill upon patient request [...] Exam Date Time Procedure Performing Provider Status 02/01/21 5:20 PM Chest 2 Views Frontal and Lat Angie Jackson (Verified) Notes: (Chest 2 Views Frontal and Lat) Reason For Exam: chest pain;Other: RESULT: Chest 2 Views Frontal and Lat Chest 2 Views Frontal and Lat Hx of Present Illness: Hx asthma, increased SOB x 3 weeks, s p covid vaccines; pt also notes pain redness swelling to right foot; Sp02 98% RA,; Reason: Other:; chest pain; Clinical Question(s): CHF COMPARISON: 09/14/2020 FINDINGS: LINES AND TUBES: None. LUNGS AND PLEURA: Clear lungs. Normal pulmonary vascularity. No pleural effusion. No pneumothorax. HEART, MEDIASTINUM AND RIA: Heart is normal in size. Normal upper mediastinal and hilar contour. BONES AND SOFT TISSUES: No acute abnormality. IMPRESSION: No acute abnormality. WSN: [id number] Ordering Physician: Fran Bloom Dictated By: Pipo Bahena MD Dictated Date/Time: 02/01/21 5:21 pm Reviewed By: Pipo Bahena MD Signed By: Pipo Bahena MD Signed Date/Time: 02/01/21 5:21 pm Transcribed By: JOAQUINA Transcribed Date/Time: 02/01/21 5:21 pm Vital Signs Most recent to oldest [Reference Range]: 1 2 Height 188 cm (02/01/21 3:56 PM) 188 cm (02/01/21 3:54 PM) Weight 230 kg (02/01/21 3:56 PM) 230 kg (02/01/21 3:54 PM) Oxygen Saturation [94-100 %] 98 % (02/01/21 6:43 PM) 98 % (02/01/21 3:54 PM) Pulse Rate [55-90 bpm] 82 bpm (02/01/21 6:43 PM) 90 bpm (02/01/21 3:54 PM) Body Mass Index [18.5-24.99] 65.07 *>HHI* (02/01/21 3:54 PM) Blood Pressure [90-138/55-84 mm Hg] 127/ 63mm Hg (02/01/21 6:43 PM) 123/78mm Hg (02/01/21 3:54 PM) Respiratory Rate [16-30 br/min] 22 br/mi n (02/01/21 6:43 PM) 22 br/min (02/01/21 3:54 PM) Temperature [96.8-100.4 DegF] 98.6 DegF (02/01/21 6:43 PM) 97.6 DegF (02/01/21 3:54 PM) Mode of Delivery (Oxygen) Room air (02/01/21 6:43 PM) Room air (02/01/21 3:54 PM) Blood pressure sites Arm, left (02/01/21 6:43 PM) Arm, left (02/01/21 3:54 PM) Temperature Route Oral (02/01/21 6:43 PM) Temporal (02/01/21 3:54 PM) Dry Weight 230 kg (02/01/21 3:56 PM) 230 kg (02/01/21 3:54 PM) Weight Obtained Via Patient/family state d (02/01/21 3:54 PM) Dry Weight Obtained Via Patient/family s tated (02/01/21 3:54 PM) Social History Social History Type Response Smoking Status Never smoker entered on: 07/08/17 Sex Medical Equipment Implanted Date:09/05/17Target Site:Abdomen Description Quantity MRI Company Model MESH VENTRALIGHT ECHO CIR 6 - BARD ([id number]) 1 Bard Davol 29 Unknown NI:No Information Assigning Authority: FDA
--- OUTSIDE RECORDS SUMMARY | 2023-01-17 08:42 | XMS_ITS | Continuity of Care Document ---
Author Name Unknown Organization [facility] Address [address] [place] [address]- Care Team Providers Care Volleyball Commentator Name Role Phone Jessa Solorzano Primary Care Physician [phone] [place] [facility] [place] Date(s): 10/29/19 - 11/05/19 [facility] [address] [place] [address]- [facility] Attending Physician: Tito Horvath MD [...] 1, tablet, By Mouth, Daily, instructions in pakistani. 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 Refills 4, Maintenance, 02/16/18 15:21:04 EST, Route to Pharmacy Electronically, [id number], [facility] 1966 Start Date: [...] Response Smoking Status Never smoker entered on: 5/11/18 Sex Medical Equipment Implanted Date:09/05/17Target Site:Abdomen Description Quantity MRI Company Model MESH VENTRALIGHT ECHO CIR 6 - BARD ([id number]) 1 Bard Davol 29 Unknown NI:No Information Assigning Authority: FDA
--- OUTSIDE RECORDS SUMMARY | 2023-01-17 08:42 | XMS_ITS | Continuity of Care Document ---
Author Name Unknown Organization [facility] Address [address] [place] [address]- Care Team Providers Care Patent Drafter Name Role Phone Jessa Solorzano Primary Care Physician [id number] Date(s): 12/18/20 - 04/17/21 [facility] [address] [place] [address]- Attending Physician: Dimitrios Escamilla MD Admitting Physician: Dimitrios Escamilla MD Referring Physician: Jessa Solorzano Allergies, Adverse [...] 1, tablet, By Mouth, Daily, instructions in canadian. 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 Refills 4, Maintenance, 02/16/18 15:21:04 EST, Route to Pharmacy Electronically, [id number], [facility] Start Date: 02/16/18 Stop Date: [...] each, 0 Refills, Maintenance, 03/18/21 15:48:00 EST, [facility], ok to sub for any [...] 0 Refills, Maintenance, 02/01/21 18:31:00 EST, Tablet, [facility], Partial fill upon patient request [...] MESH VENTRALIGHT ECHO CIR 6 - BARD ([id number]) 1 Bard Davol 29 Unknown NI:No Information Assigning Authority: FDA
--- OUTSIDE RECORDS SUMMARY | 2023-01-17 08:42 | XMS_ITS | Continuity of Care Document ---
Author Name Unknown Organization [facility] Address [address] [place] [address]- Care Team Providers Care Casino Host Name Role Phone Jessa Solorzano Primary Care Physician [phone] [place] [facility] [place] 11/14/20 [facility] [address] [place], [place] [address] Attending Physician: Abundio Gastelum Admitting Physician: Abundio [...] 1, tablet, By Mouth, Daily, instructions in bolivian. 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 Refills 4, Maintenance, 02/16/18 15:21:04 EST, Route to Pharmacy Electronically, [id number], [facility] 1966 Start Date: 02/16/18 [...] MESH VENTRALIGHT ECHO CIR 6 - BARD ([id number]) 1 Bard Davol 29 Unknown NI:No Information Assigning Authority: FDA
--- OUTSIDE RECORDS SUMMARY | 2023-01-17 08:42 | XMS_ITS | Continuity of Care Document ---
Author Name Unknown Organization [facility] Address [address] [place] [address]- Care Team Providers Care Tarper Name Role Phone Jessa Solorzano Primary Care Physician [phone] En[place] [facility] [place] Date(s): 03/18/21 - 04/17/21 [facility] [address] [place] [address]- Attending Physician: Abundio Gastelum Admitting Physician: Abundio Gastelum Referring Physician: Abundio Gastelum Referring Physician: Janis Funez Referring Physician: Keiry Andersen Allergies, Adverse Reactions, Alerts Substance Reaction Severity [...] 1, tablet, By Mouth, Daily, instructions in chilean. 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 Refills 4, Maintenance, 02/16/18 15:21:04 EST, Route to Pharmacy Electronically, [id number], [facility] 1966 Start Date: 02/16/18 [...] each, 0 Refills, Maintenance, 03/18/21 15:48:00 EST, [facility], ok to sub for any [...] 0 Refills, Maintenance, 02/01/21 18:31:00 EST, Tablet, [facility], Partial fill upon patient request [...] MESH VENTRALIGHT ECHO CIR 6 - BARD ([id number]) 1 Bard Davol 29 Unknown NI:No Information Assigning Authority: FDA
--- OUTSIDE RECORDS SUMMARY | 2023-01-17 08:42 | XMS_ITS | Continuity of Care Document ---
Author Name Unknown Organization [facility] Address [address] [place] [address]- Care Team Providers Care Bus Inspector Name Role Phone Jessa Solorzano Primary Care Physician [place] [facility] [place]17[place] - 11/16/19 [facility] [address] [place] [address]- Allergies, Adverse Reactions, Alerts Substance Reaction Severity [...] 1, tablet, By Mouth, Daily, instructions in serbian. 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 Refills 4, Maintenance, 02/16/18 15:21:04 EST, Route to Pharmacy Electronically, [id number], [facility] 1966 Start Date: 02/16/18 Stop [...] MESH VENTRALIGHT ECHO CIR 6 - BARD ([id number]) 1 Bard Davol 29 Unknown NI:No Information Assigning Authority: FDA
--- OUTSIDE RECORDS SUMMARY | 2023-01-17 08:42 | XMS_ITS | Continuity of Care Document ---
Author Name Unknown Organization [facility] Address [address] [address]- Care Team Providers Care Lining Setter Name Role Phone Jessa Solorzano Primary Care Physician En[facility] [place] Date(s): 06/01/19 - 07/12/19 [facility] [address] [address] Attending Physician: Golden ESPAÑA, Rosas Carlos Referring Physician: Jessa Solorzano Allergies, Adverse Reactions, [...] 1, tablet, By Mouth, Daily, instructions in citizen of kiribati. 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 Refills 4, Maintenance, 02/16/18 15:21:04 EST, Route to Pharmacy Electronically, [id number], [facility] 1966 Start Date: 02/16/18 [...] MESH VENTRALIGHT ECHO CIR 6 - BARD ([id number]) 1 Bard Davol 29 Unknown NI:No Information Assigning Authority: FDA
--- OUTSIDE RECORDS SUMMARY | 2023-01-17 08:42 | XMS_ITS | Continuity of Care Document ---
Author Name Unknown Organization [facility] Address [address] [place] [address]- Care Team Providers Care Boat Crew Deck Hand Name Role Phone Jessa Solorzano Primary Care Physician [place] [facility] [place]s): 02/17/19 - 06/17/19 [facility] [address] [place] [address]- [facility] Attending Physician: Tito Horvath MD [...] 1, tablet, By Mouth, Daily, instructions in east timorese. 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 Refills 4, Maintenance, 02/16/18 15:21:04 EST, Route to Pharmacy Electronically, [id number], [facility] 1966 Start Date: 02/16/18 [...] MESH VENTRALIGHT ECHO CIR 6 - BARD ([id number]) 1 Bard Davol 29 Unknown NI:No Information Assigning Authority: FDA
--- OUTSIDE RECORDS SUMMARY | 2023-01-17 08:42 | XMS_ITS | Continuity of Care Document ---
Author Name Unknown Organization [facility] Address [address] [place] [address]- Care Team Providers Care Demand Planner Name Role Phone Jessa Solorzano Primary Care Physician [phone] [place] [facility] [place] 02/06/19 - 02/13/19 [facility] [address] [place] [address]- [facility] Attending Physician: Tito Horvath MD Admitting Physician: [...] 1, tablet, By Mouth, Daily, instructions in german. 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 Refills 4, Maintenance, 02/16/18 15:21:04 EST, Route to Pharmacy Electronically, [id number], [facility] 1966 Start Date: 02/16/18 [...] 04/10/17 21:12:45 Start Date: 04/10/17 Status: Ordered metFORMIN 500 mg oral tablet [...] apnea (young lt) (pediatric)(Confirmed) Active 1REM related Vital Signs Most recent to oldest [Reference Range]: 1 Height 188 cm (02/06/19 4:31 PM) Weight 238.5 kg (02/06/19 4:31 PM) Body Mass Index [18.5-24.99] 67.48 *>HHI* (02/06/19 4:31 PM) Blood Pressure [90-138/55-84 mm Hg] 130/ 80mm Hg (02/06/19 4:31 PM) Blood pressure sites Arm, left (02/06/19 4:31 PM) Weight Obtained Via Patient/family state d (02/06/19 4:31 PM) Social History Social History Type Response Smoking Status Never smoker entered on: 07/08/17 Sex Medical Equipment Implanted Date:09/05/17Target Site:Abdomen Description Quantity MRI Company Model MESH VENTRALIGHT ECHO CIR 6 - BARD ([id number]) 1 Bard Davol 29 Unknown NI:No Information Assigning Authority: FDA
--- OUTSIDE RECORDS SUMMARY | 2023-01-17 08:42 | XMS_ITS | Continuity of Care Document ---
Author Name Unknown Organization [facility] Address [address] [address]- Care Team Providers Care Bowling Ball Engraver Name Role Phone Jessa Solorzano Primary Care Physician En[place] [facility] [place] Date(s): 07/21/21 - 08/20/21 [facility] [address] [facility] [address] [place], [place] [address] Allergies, Adverse Reactions, Alerts Substance Reaction Severity [...] 02/16/18 15:21:04 EST, Route to Pharmacy Electronically, [id number] Start Date: 02/16/18 Stop Date: [...] each, 0 Refills, Maintenance, 03/18/21 15:48:00 EST, [facility], ok to sub for any [...] 0 Refills, Maintenance, 02/01/21 18:31:00 EST, Tablet, [facility], Partial fill upon patient request [...] MESH VENTRALIGHT ECHO CIR 6 - BARD ([id number]) 1 Bard Davol 29 Unknown NI:No Information Assigning Authority: FDA
--- OUTSIDE RECORDS SUMMARY | 2023-01-17 08:42 | XMS_ITS | Continuity of Care Document ---
Author Name Unknown Organization [facility] Address [address] [place] [address]- Care Team Providers Care Judo Instructor Name Role Phone Keiry ROJAS, Nathaly Primary Care Physician [phone] [place] [facility] [place]14[place]22 [facility] [address] [place], [place] [address] Attending Physician: Admtr, Brandon8 Admitting Physician: Admtr, Ar8 Referring Physician: Admtr, Ar8 Allergies, Adverse Reactions, Alerts Substance Reaction Severity Status penicillins Active Medications Advair Diskus 500 mcg-50 mcg inhalation powder 1, inhalation, Inhalation, 2 times a day, rinse mouth and throat after use, # 1 each, Refills 11, Tot. Refills 11, Maintenance, 03/29/22 14:21:00 EST, Powder, Route to Pharmacy Electronically, NCPDP_[id number], [facility], 188, cm, 01... Start Date: 03/29/22 Status: Ordered Albuterol (Eqv-ProAir HFA) 90 mcg/inh inhalation aerosol 2 puffs, Inhalation, Every 6 hours, # 6.7 Gm, 11 Refills, Maintenance, 03/29/22 14:21:00 EST, [facility], Partial fill upon patient request if the prescription is for a schedule II opioid drug., 2 puffs Inhalation Every 6 hours, 188,... Start Date: 03/29/22 Status: Ordered albuterol 0.083% inhalation solution 3 mL = 2.5 mg, Inhalation, Every 6 hours, PRN for wheezing/shortness of breath, # 360 mL, 11 Refills, Maintenance, 03/29/22 14:21:00 EST, Solution, [facility], Partial fill upon patient request [...] 1, tablet, By Mouth, Daily, instructions in northern irish. 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 Refills 4, Maintenance, 02/16/18 15:21:04 EST, Route to Pharmacy Electronically, [id number], [facility] 1966 Start Date: 02/16/18 [...] 11 Refills, Maintenance, 03/29/22 14:21:00 EST, Powder, [facility], Partial fill upon patient request [...] 03/29/22 14:21:00 EST, Route to Pharmacy Electronically, [facility], Partial fill upon patient request [...] each, 0 Refills, Maintenance, 03/18/21 15:48:00 EST, [place] [address], ca to sub for any gallon prep, as [...] 03/29/22 14:21:00 EST, Route to Pharmacy Electronically, [facility], Partial fill upon patient request [...] MRI Safety Implantable Status Assigning Authority Unknown [id number] Unknown Unknown 09/05/17 Unknown Unknown Active Unknown Patient Care team information Care Team Personnel Name: Jailene Mccain RN Position: [facility] Nurse Member Role: Primary Care Nurse Name: Eli Josue RN Position: [facility] RN Member Role: Primary Care Nurse Name: Nathaly Ricci NP Position: Reference Physician Member Role: PCP Address: Address: [address] [place] [address]- Care Team Related Persons Name: SHIRLEY GURROLA Address: home [address] [facility] [address] [place] [address]
--- OUTSIDE RECORDS SUMMARY | 2023-01-17 08:42 | XMS_ITS | Continuity of Care Document ---
Author Name Unknown Organization [facility] Address [address] [place] [address]- Care Team Providers Care Financial Reporting Advisor Name Role Phone Jessa Solorzano Primary Care Physician [phone] Encounter [facility] [place] Date(s): 08/24/21 - 09/23/21 [facility] [address] [place], [place] [address] Allergies, Adverse Reactions, Alerts Substance Reaction Severity Status penicillins Active Medications Advair Diskus 500 mcg-50 mcg inhalation powder 1, inhalation, Inhalation, 2 times a day, rinse mouth and throat after use, # 1 each, Refills 11, Tot. Refills 11, Maintenance, 08/24/21 15:39:00 EDT, Powder, Route to Pharmacy Electronically, [id number], [facility]... Start Date: 08/24/21 Status: Ordered Albuterol (Eqv-ProAir HFA) 90 mcg/inh inhalation aerosol 2 puffs, Inhalation, Every 6 hours, # 1 each, 11 Refills, Maintenance, 08/24/21 15:39:00 EDT, [facility], Partial fill upon patient request [...] 11 Refills, Maintenance, 08/24/21 15:39:00 EDT, Solution, [facility], Partial fill upon patient request [...] 02/16/18 15:21:04 EST, Route to Pharmacy Electronically, [id number], [facility] 1966 Start Date: 02/16/18 Stop [...] 11 Refills, Maintenance, 08/24/21 15:39:00 EDT, Powder, [facility], Partial fill upon patient request [...] 08/24/21 15:39:00 EDT, Route to Pharmacy Electronically, [facility], Partial fill upon patient request [...] each, 0 Refills, Maintenance, 03/18/21 15:48:00 EST, [facility], ok to sub for any [...] 0 Refills, Maintenance, 02/01/21 18:31:00 EST, Tablet, [facility], Partial fill upon patient request [...] 08/24/21 15:39:00 EDT, Route to Pharmacy Electronically, [facility], Partial fill upon patient request [...] MESH VENTRALIGHT ECHO CIR 6 - BARD ([id number]) 1 Bard Davol 29 Unknown NI:No Information Assigning Authority: FDA
--- OUTSIDE RECORDS SUMMARY | 2023-01-17 08:42 | XMS_ITS | Continuity of Care Document ---
Author Name Unknown Organization [facility] Address [address] [address]- Care Team Providers Care Sprayer Automatic Spray Machine Name Role Phone Jessa Solorzano Primary Care Physician En[place] [facility] [place] Date(s): 05/08/19 - 05/18/19 [facility] [address] [address]- [facility] Attending Physician: Abundio Gastelum Admitting Physician: Abundio [...] 1, tablet, By Mouth, Daily, instructions in occitan. 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 Refills 4, Maintenance, 02/16/18 15:21:04 EST, Route to Pharmacy Electronically, [id number], [facility] 1966 Start Date: 02/16/18 [...] MESH VENTRALIGHT ECHO CIR 6 - BARD ([id number]) 1 Bard Davol 29 Unknown NI:No Information Assigning Authority: FDA
--- OUTSIDE RECORDS SUMMARY | 2023-01-17 08:42 | XMS_ITS | Continuity of Care Document ---
Author Name Unknown Organization [facility] Address [address] [place] [address]- Care Team Providers Care Head Teller Name Role Phone Jessa Solorzano Primary Care Physician En[place] [facility] [place] Date(s): 03/27/19 - 07/25/19 [facility] [address] [address] [facility] Attending Physician: Lowell Turcios MD Admitting Physician: Lowell Turcios MD Allergies, Adverse Reactions, Alerts Substance Reaction [...] 1, tablet, By Mouth, Daily, instructions in slovenian. 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 Refills 4, Maintenance, 02/16/18 15:21:04 EST, Route to Pharmacy Electronically, [id number], [facility] 1966 Start Date: 02/16/18 Stop Date: [...] MESH VENTRALIGHT ECHO CIR 6 - BARD ([id number]) 1 Bard Davol 29 Unknown NI:No Information Assigning Authority: FDA
--- OUTSIDE RECORDS SUMMARY | 2023-01-17 08:42 | XMS_ITS | Continuity of Care Document ---
Author Name Unknown Organization [facility] Address [address] [facility] [address] [place] [address]- Care Team Providers Care Pastrycook Name Role Phone Jessa Solorzano Primary Care Physician [phone] [place] [facility] [place]): 05/04/19 - 06/29/19 [facility] [address] [facility] [address] [place] [address]- [facility] Attending Physician: Rosas Franks MD Admitting Physician: Rosas Franks MD Allergies, Adverse Reactions, Alerts Substance Reaction [...] 1, tablet, By Mouth, Daily, instructions in norwegian. 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 Refills 4, Maintenance, 02/16/18 15:21:04 EST, Route to Pharmacy Electronically, [id number], [facility] 1966 Start Date: 02/16/18 Stop [...] MESH VENTRALIGHT ECHO CIR 6 - BARD ([id number]) 1 Bard Davol 29 Unknown NI:No Information Assigning Authority: FDA
--- OUTSIDE RECORDS SUMMARY | 2023-01-17 08:42 | XMS_ITS | Continuity of Care Document ---
Author Name Unknown Organization [facility] Address [address] [address]- Care Team Providers Care Operations Executive Name Role Phone Jessa Solorzano Primary Care Physician En[place] [facility] [place] Date(s): 02/16/19 - 06/07/19 [facility] [address] [address]- [facility] Attending Physician: Rosas Franks MD Admitting Physician: Rosas Franks MD Referring Physician: Jessa Solorzano Allergies, Adverse [...] 1, tablet, By Mouth, Daily, instructions in jordanian. 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 Refills 4, Maintenance, 02/16/18 15:21:04 EST, Route to Pharmacy Electronically, [id number], [facility] 1966 Start Date: 02/16/18 [...] MESH VENTRALIGHT ECHO CIR 6 - BARD ([id number]) 1 Bard Davol 29 Unknown NI:No Information Assigning Authority: FDA
--- OUTSIDE RECORDS SUMMARY | 2023-01-17 08:42 | XMS_ITS | Continuity of Care Document ---
Author Name Unknown Organization [facility] Address [address] [place] [id number]- Care Team Providers Care Machine Tank Operator Name Role Phone Jessa Solorzano Primary Care Physician Encounter [facility] Date(s): 06/21/19 - 07/21/19 [facility] [address] [address]- [facility] Attending Physician: Brandon [id number] Admitting Physician: Admtr, Abundio Referring Physician: Admtr, Ar8 Allergies, Adverse Reactions, [...] 1, tablet, By Mouth, Daily, instructions in kinyarwanda. 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 Refills 4, Maintenance, 02/16/18 15:21:04 EST, Route to Pharmacy Electronically, [id number], [facility] 1966 Start Date: 02/16/18 Stop [...] MESH VENTRALIGHT ECHO CIR 6 - BARD ([id number]) 1 Bard Dav[address] 29 Unknown NI:No Information Assigning Authority: FDA
--- NOTE | 2023-01-17 08:57 | ED_ITS ---
HPI - URI/Sore Throat General Chief Complaint: Upper Respiratory Symptoms Stated Complaint: asthma diff breathing Time Seen by Provider: 01/17/23 08:33 Source: patient, family, RN notes reviewed and old records reviewed Mode of arrival: ambulatory History of Present Illness HPI Narrative: 52-year-old male with a past medical history of asthma presenting to the ED complaining of productive cough and SOB x1 week. Admits recently saw PCP and finished outpatient course of prednisone 5 days ago without relief. Reports worsening exertional dyspnea and acute on chronic bilateral pedal edema > right (chronically). Denies fever, chills, travel, calf pain, sick contacts, chest pain MD elicited complaint: cough Related Data Previous Rx's Medication Instructions Recorded prednisone 20 mg tablet 40 mg (2 x 20 mg) PO DAILY 5 days 01/17/23 #10 tabs Allergies Allergy/AdvReac Type Severity Reaction Status Date / Time Penicillins [PCN] Allergy Rash Verified 01/17/23 07:23 Review of Systems 2 Review of Systems: Constitutional:No Fever, No Chills, No Fatigue, No Malaise ENT/Mouth: No Ear Pain, No sore throat, No Rhinorrhea, No Swallowing Difficulty Eyes: No Eye Pain, No Swelling, No Redness, No Vision Changes Cardiovascular: No Chest Pain, + SOB, + Dyspnea on Exertion, +Orthopnea, + Edema, No Palpitations Respiratory: +Cough, +Sputum, + Wheezing, N+ Dyspnea Gastrointestinal: No Nausea, No Vomiting, No Diarrhea, No Constipation, No Abdominal pain Genitourinary: No Dysuria, No Urinary Frequency, No Hematuria, No Flank Pain Musculoskeletal: No joint pain, No Myalgias, No Joint Swelling Skin: No Skin Lesions, No rash Neuro: No Weakness, No Headache Yes all other systems are reviewed and are negative Constitutional: Constitutional: Reports as per [facility] Past Medical History Attestation statement: The following information was validated with the patient. Source: old records reviewed Social History Smoked in Last 30 Days: No Use of substances other than those prescribed or required for medical reasons: No Advance Directives: No Advance Directives Information Provided: No Physical Exam 2 Vital Signs: Vital Signs: Last Vital Signs Temp 97.9 F 01/17/23 14:20 Pulse 77 01/17/23 14:20 Resp 20 01/17/23 14:20 BP 124/60 01/17/23 14:20 Pulse Ox 95 01/17/23 14:20 O2 Del Method Room Air 01/17/23 14:20 BMI result Body Mass Index 76.5 Const: General: cooperative and no acute distress Nutritional Appearance: o bese morbidly obese Orientation/consciousness: patient oriented x3 L imitations: no limitations HEENT: Head: Yes normal to inspection and Yes atraumatic Ears: hearing grossly normal bilaterally General nose exam: Normal external nose present Face and sinus: Yes normal facial exam Eyes: General: appearance normal, both eyes and all related structures EOM: EOMs intact bilaterally Neck: Neck: Yes normal visual inspection and Yes no meningeal signs Resp: Effort & Inspection: normal respiratory effort, no respiratory distress and tachypneic Auscultation: wheezes expiratory wheezes and throughout Cardio: Rate: regular rate Heart sounds: S1 normal heart sound present and S2 normal heart sound present GI: Inspection: Yes normal to inspection Palpation (GI): Soft to palpation, nontender, no guarding and not rigid : General: Yes no CVA tenderness Back/Spine/Pelvis: Back: no CVA tenderness Skin: Rashes: no rashes Wounds: no wounds Neuro: General: patient oriented x3, tone normal and no meningeal signs C ranial nerves: Yes CN's II-XII intact bilaterally Gait exam (Neuro): Normal gait present Extrem: Other: + bilateral LE pitting edema > RLE (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 Low suspicion for severe sepsis. Labs otherwise reassuring. Troponin negative -COVID and influenza negative XR chest 2V IMPRESSION: No acute cardiopulmonary disease. US venous duplex LE BI IMPRESSION: No DVT demonstrated in the right or left lower extremity. -1400--on re-evaluation lungs with much improvement, minimal residual end expiratory wheeze after 3 albuterol nebs, Solu-Medrol, and magnesium. Plan is for discharge home. Patient is agreeable with plan Results discussed with patient including worrisome signs and symptoms and strict return precautions, and when to return to the emergency department. They verbalized understanding and feel safe for discharge at this time. Medications Administered Discontinued Medications Generic Name Dose Route Start Last Admin Trade Name Mariana PRN Reason Stop Dose Admin Albuterol Sulfate 2.5 mg/ 5 mg 01/17/23 09:26 01/17/23 09:29 Albuterol Sulfate 2.5 mg INHALE 01/17/23 09:27 5 mg ONCE ONE Administration Albuterol Sulfate 5 mg 01/17/23 10:48 01/17/23 11:07 Albuterol Sulfate (0.083%) 2.5 Mg/3 Ml Vial.Neb INHALE 01/17/23 10:49 5 mg ONCE ONE Administration Albuterol Sulfate 5 mg 01/17/23 12:54 01/17/23 14:17 Albuterol Sulfate (0.083%) 2.5 Mg/3 Ml Vial.Neb INHALE 01/17/23 12:55 5 mg ONCE ONE Administration Magnesium Sulfate 2 gm in 50 mls @ 25 mls/hr 01/17/23 11:55 01/17/23 13:03 Magnesium Sulfate/H2o IV 01/17/23 13:54 Infused ONCE ONE Infusion Methylprednisolone Sodium Succinate 125 mg 01/17/23 09:15 01/17/23 10:15 Methylprednisolone Sod Succ 125 Mg/2 Ml Vial IVPUSH 01/17/23 09:16 125 mg ONCE ONE Administration Medical Decision Making Medical Decision Making [facility] Narrative: 52-year-old male with a past medical history of asthma presenting to the ED complaining of productive cough and SOB x1 week. On exam tachypneic, NAD, nontoxic appearing, diffuse expiatory wheeze noted. Bilateral LE pitting edema > RLE. Concern for asthma exacerbation vs pneumonia vs bronchitis vs CHF. Lower suspicion for DVT/PE or dissection Plan: EKG, labs, viral testing, CXR, venous duplex ultrasound, albuterol nebs, IV Solu-Medrol, re-evaluate Please refer to course for remaining clinical decision making, interpretation of labs/imaging results, and discussions with consultants and/or family members. Differential Diagnosis Differential Diagnoses: The differential diagnosis associated with the presentation includes As above Admission/Observation Consideration of admission/observation: Escalation of care including admission/observation considered Lab Data [facility] Lab Attestation statement: I reviewed the patient's lab results. 01/17/23 07:41 01/17/23 07:41 Labs: Lab Results 11/20/23 Range/Units 07:41 WBC 14.5 H (4.8-10.8) X10*3/uL RBC 4.85 (4.60-5.80) X10*6/uL Hgb 12.5 L (14.0-18.0) g/dl Hct 40.3 L (42.0-52.0) % MCV 83.1 (80.0-98.0) fL MCH 25.8 L (27.0-33.0) pg MCHC 31.0 (31.0-36.0) g/dl RDW 17.0 H (11.0-16.0) % Plt Count 222 (160-400) X10*3/uL MPV 8.8 L (9.4-12.4) fL Immature Gran % (Auto) 0.5 H (0.0-0.4) % Neut % (Auto) 70.5 (45-73) % Lymph % (Auto) 20.1 (20-40) % Jay % (Auto) 6.9 (2-11) % Eos % (Auto) 1.7 (0-4) % Baso % (Auto) 0.3 (0-2) % Lymph # (Auto) 2.9 (1.2-4.9) X10*3/uL Jay # (Auto) 1.0 (0.1-1.2) X10*3/uL Eos # (Auto) 0.3 (0.0-0.4) X10*3/uL Baso # (Auto) 0.0 (0.0-0.2) X10*3/uL Abs Immat Gran (auto) 0.07 H (0.00-0.03) X10*3/uL Absolute Neuts (auto) 10.2 H (2.0-8.3) x10*3/uL Absolute Nucleated RBC 0.000 (0.0-0.012) X10*3/uL Nucleated RBC % (auto) 0.0 (0.0-0.2) /100WBC Sodium 138 (135-145) mmol/L Potassium 4.2 (3.3-5.1) mmol/L Chloride 103 (96-108) mmol/L Carbon Dioxide 30 H (22-29) mmol/L Anion Gap 9 L (12-20) BUN 14 (9-16) mg/dL Creatinine 0.76 (0.5-1.4) mg/dL Estim Creat Clear Calc 249.1 Estimated GFR > 60 Random Glucose 112 (60-115) mg/dL Calcium 9.0 (8.4-10.2) mg/dL Total Bilirubin 0.5 (0.0-1.0) mg/dL AST 20 (5-37) U/L ALT 24 (0-40) U/L Alkaline Phosphatase 61 (39-117) U/L Troponin I High Sens 2.9 (<3.5-35.0) ng/L B-Natriuretic Peptide < 10 (<100) pg/mL Total Protein 7.8 (6.5-8.0) g/dL Albumin 3.7 (3.5-5.0) g/dL COVID-19 (ABBEY) Negative (Negative) COVID-19 Clin Com See Note Influenza Type A (VALENTIN) Negative (Negative) Influenza Type B (VALENTIN) Negative (Negative) Influenza A & B Note See Note Independent Interpretation I performed an independent interpretation of an: EKG (My interpretation EKG normal sinus rhythm rate of 73. KY interval 152. QTC 464. No STEMI) Radiology Impression Discussion of test interpretation with radiology: I have reviewed the radiologist's reading. External Record Review External record reviewed: Inpatient record, Office record, Outpatient record, Prior outpatient labs, Prior outpatient radiology, Primary care record and Outside ED record Tests considered The following testing was considered but not selected: As above Chronic Conditions Patient?s care impacted by: Other (Asthma) Critical Care Time Critical Care Time Critical Care Time: Yes Total Critical Care Time: 45 Attestation: I have personally provided critical care time exclusive of time spent on separately billable procedures. Time includes review of lab data, radiology results, discussion with consultants, and monitoring for potential decompensation. Intervention performed as documented. Discharge Plan Discharge Clinical Impression: Asthma exacerbation Patient Disposition: Home, Self-Care Instructions: Asthma (DC) Additional Instructions: You tested negative for COVID including on her x-ray does not show pneumonia Continue to use neb machine and inhalers at home in addition start taking prednisone Please of close follow-up with your doctor If symptoms persist or worsen return to the ED Micheal negativo en COVID y en villegas radiograf?a no muestra neumon?a Contin?e usando la m?quina neb y los inhaladores en casa y adem?s comience a nazario prednisona. Por favor de un estrecho seguimiento con villegas m?dico. Si los s?ntomas persisten o empeoran, regrese al servicio de urgencias. Prescriptions: New prednisone 20 mg tablet 40 mg PO DAILY 5 Days Qty: 10 0RF Referrals: Physician,Unknown J [Primary Care Provider] - 3 days Interventions: ED Discharge Assessment Last Done: 01/17/23 14:36 Discharge Date/Time: 01/17/23 14:36 Print Language: Urdu
--- NOTE | 2023-01-17 09:10 | PC.NURSE ---
assumed care of pt. pt sinhala speaking only. a&o x4. pt changed into hospital attire. significant edema to BLLE, worse in the RLE. 22G IV placed to left hand. pt sating 93-97% RA. pt to receive albuterol via respiratory therapy. placed on bedside monitor. plan of care ongoing. call hemphill within pt reach. pt spouse at bedside.
[2023-01-17] MEDS: Albuterol Sulfate 2.5 MG, Albuterol Sulfate (0.083%) 2.5 MG 5 MG INHALE (09:29)
[2023-01-17] MEDS: methylPREDNISolone Sod Succ 125 MG/2 ML VIAL IVPUSH (10:15)
--- NOTE | 2023-01-17 10:31 | PC.NURSE ---
pt medicated per apr. breathing treatment complete. pt sating 93-97% RA. audible expiratory wheezing. pt resting on stretcher in no apparent distress. rr even/unlabored. 22RR.
[2023-01-17] MEDS: Albuterol Sulfate (0.083%) 2.5 MG/3 ML VIAL.NEB 5 MG INHALE ×2 (11:07→14:17)
[2023-01-17] MEDS: Magnesium Sulfate/H2O 2 GM/50 ML PIGGYBACK IV (12:33)
== END 2023-01-17 14:36 | disposition home or self-care (01) ==
PROVIDERS: Emergency Provider Emergency Medicine
DX: J45.901 Unspecified asthma with (acute) exacerbation (principal); R06.02 Shortness of breath; R60.0 Localized edema; E66.01 Morbid (severe) obesity due to excess calories; Z68.45 Body mass index [BMI] 70 or greater, adult; Z11.52 Encounter for screening for COVID-19
CPT/HCPCS: 36415; 71046; 80053; 83880; 84484; 85025; 87502; 87635; 93005; 93970; 94640; 96365; 96375; 99285; J2930; J3475

== ENCOUNTER 2023-03-02 18:22 | Inpatient (IN) | payer OTHER, SELFPAY ==
--- NOTE | 2023-03-02 19:32 | ED.URI ---
HPI - URI/Sore Throat General Chief Complaint: Upper Respiratory Symptoms Stated Complaint: bronchitis, sore throat, fever 101 Time Seen by Provider: 03/02/23 20:57 Source: patient, family (Spouse) and translator interpreter Mode of arrival: ambulatory Limitations: no limitations History of Present Illness HPI Narrative: A 52-year-old male with past medical history significant for bronchial asthma presenting to the emergency department complaining of generalized weakness, subjective fever, generalized body ache, flu-like symptoms, been having a productive cough with greenish sputum with shortness of breath and asthma patient recently finish a course of 5 days of prednisone with no relief of his symptoms. No sick contacts, no recent travel Related Data Previous Rx's Medication Instructions Recorded prednisone 20 mg tablet 40 mg (2 x 20 mg) PO DAILY 5 days 01/17/23 #10 tabs Allergies Allergy/AdvReac Type Severity Reaction Status Date / Time Penicillins [PCN] Allergy Rash Verified 03/02/23 19:37 Review of Systems Review of Systems: All other systems are reviewed and are negative Constitutional: Reports as per HPI and Reports no additional constitutional complaints Eyes: Reports as per HPI and Reports no additional eye complaints Reports system reviewed and no additional complaints, except as documented Cardiovascular: Reports as per HPI and Reports no additional cardiovascular complaints Respiratory: Reports as per HPI and Reports no additional respiratory complaints Gastrointestinal: Reports as per HPI and Reports no additional gastrointestinal complaints Genitourinary: Reports no additional female genitourinary complaints Musculoskeletal: Reports no additional musculoskeletal complaints Skin/Breast: Reports system reviewed and no additional complaints, except as docu Psychiatric: Reports no additional psychiatric complaints Endocrine: Reports no additional endocrine complaints Hematologic/Lymphatic: Reports no additional hematologic/lymphatic complaints Allergic/Immunologic: Reports no additional allergic/immunologic complaints Reports system reviewed and no additional complaints, except as documented and Reports Abnormal speech present [facility] Social History Social History Advance Directives: No Advance Directives Information Provided: No Physical Exam Vital Signs: Vital Signs: Last Vital Signs Temp 102.0 F H 03/02/23 19:33 Pulse 98 03/02/23 21:26 Resp 22 H 03/02/23 21:26 BP 192/72 H 03/02/23 19:33 Pulse Ox 92 03/02/23 19:33 O2 Del Method Room Air 03/02/23 19:33 BMI result Body Mass Index 77.2 Vital signs have been reviewed and appear to be correct. Blood pressure elevated. Heart rate elevated. Respiratory rate normal. Temperature normal. Oxygen saturation normal. Appearance: Obese, Alert. Oriented X3. No acute distress. Head: Normal external exam. Normocephalic. Atraumatic. No Hernandez signs noted. No raccoon eyes noted Eyes: PERRLA. EOMI. Conjunctiva and sclera normal. Eyelids normal. ENT: TM's Normal. Pharynx normal. Uvula midline. Moist mucous membranes. No trismus noted. No drooling noted. No muffled voice noted. Neck: Normal inspection. Neck supple. FROM. No adenopathy. Thyroid Normal. No meningeal signs. No neck mass noted. CVS: Normal heart rate and rhythm. Heart sound normal. No murmurs noted. Pulses normal throughout. Respiratory: No respiratory distress. Painless inspiration. Breath sounds normal. Mild diffuse expiratory wheezing with prolonged expiration, Chest nontender. No accessory muscle usage noted or decreased air movement noted. Abdomen: Soft and nontender. Bowel sounds normal in all 4 quadrants. No distention noted. No organomegaly noted. No visible injury noted. Back: No CVA tenderness. Full range of motion noted. Skin: Skin warm and dry. Normal skin color. Normal skin turgor. No rashes/lesions/lacerations noted. Extremities: No lower extremity edema. Extremities exhibit normal range of motion. Extremities nontender. Neuro: Oriented X 3. Cranial nerve exam: II-XII are grossly intact No motor deficit. No sensory deficit. Reflexes normal. Course Course Course Narrative: RME: 52 yo male w/ PMHx asthma, obesity presenting to the ED c/o chest pain, SOB, fever, chills, cough x yesterday Febrile to 102, tachypneic, expiratory wheeze noted with decreased lung sounds EKG, labs, CXR, viral testing, ED bronchodilator protocol and p.o. Tylenol ordered Full HPI, ROS and PE to be performed by primary ED provider. Reevaluation(s) Reevaluation #1: Patient received 10 mg of albuterol via neb and Solu-Medrol with magnesium patient attempt to walk to the bathroom while in the ED developed severe exertional dyspnea. Patient will be admitted for further bronchodilator administration. Time: 22:15 Medications Administered Generic Name Dose Route Start Last Admin Trade Name Mariana PRN Reason Stop Dose Admin Magnesium Sulfate 2 gm in 50 mls @ 25 mls/hr 03/02/23 21:19 03/02/23 21:55 Magnesium Sulfate/H2o IV 03/02/23 23:18 25 mls/hr ONCE ONE Administration Discontinued Medications Generic Name Dose Route Start Last Admin Trade Name Mariana PRN Reason Stop Dose Admin Acetaminophen 975 mg 03/02/23 19:37 03/02/23 21:26 Acetaminophen 325 Mg Tablet PO 03/02/23 19:38 Not Given ONCE ONE Acetaminophen 975 mg 03/02/23 21:18 03/02/23 21:55 Acetaminophen 325 Mg Tablet PO 03/02/23 21:19 975 mg ONCE ONE Administration Albuterol/Ipratropium 3 ml 03/02/23 21:19 03/02/23 21:25 Albuterol/Iprat 2.5/0.5mg 3 Ml Ampul.Neb INHALE 03/02/23 21:20 3 ml ONCE ONE Administration Albuterol Sulfate 5 mg/ 0 mg 03/02/23 21:11 03/02/23 21:25 Albuterol/Ipratropium 3 ml INHALE 03/02/23 21:12 2.5 each ONCE ONE Administration Methylprednisolone Sodium Succinate 125 mg 03/02/23 21:18 03/02/23 21:55 Methylprednisolone Sod Succ 125 Mg/2 Ml Vial IVPUSH 03/02/23 21:19 125 mg ONCE ONE Administration Medical Decision Making Differential Diagnosis Differential Diagnoses: The differential diagnosis associated with the presentation includes (Pneumonia, pneumothorax, pleural effusion, asthma exacerbation, viral bronchitis, severe anemia, electrolyte abnormality.) Admission/Observation Consideration of admission/observation: Escalation of care including admission/observation considered Consult Healthcare Provider Management of the patient was discussed with: Hospitalist (Dr. Ortiz.) Lab Data MDM Lab Attestation statement: I reviewed the patient's lab results. 03/02/23 19:55 03/02/23 19:55 Labs: Lab Results 03/02/23 Range/Units 19:55 WBC 9.7 (4.8-10.8) X10*3/uL RBC 4.94 (4.60-5.80) X10*6/uL Hgb 12.6 L (14.0-18.0) g/dl Hct 40.9 L (42.0-52.0) % MCV 82.8 (80.0-98.0) fL MCH 25.5 L (27.0-33.0) pg MCHC 30.8 L (31.0-36.0) g/dl RDW 17.1 H (11.0-16.0) % Plt Count TNP MPV 10.1 (9.4-12.4) fL Immature Gran % (Auto) 0.5 H (0.0-0.4) % Neut % (Auto) 76.0 H (45-73) % Lymph % (Auto) 8.8 L (20-40) % [place] % (Auto) 14.2 H (2-11) % Eos % (Auto) 0.2 (0-4) % Baso % (Auto) 0.3 (0-2) % Lymph # (Auto) 0.9 L (1.2-4.9) X10*3/uL [place] # (Auto) 1.4 H (0.1-1.2) X10*3/uL Eos # (Auto) 0.0 (0.0-0.4) X10*3/uL Baso # (Auto) 0.0 (0.0-0.2) X10*3/uL Abs Immat Gran (auto) 0.05 H (0.00-0.03) X10*3/uL Absolute Neuts (auto) 7.4 (2.0-8.3) x10*3/uL Absolute Nucleated RBC 0.000 (0.0-0.012) X10*3/uL Nucleated RBC % (auto) 0.0 (0.0-0.2) /100WBC Smear Tech's Comments VERIFIED Sodium 135 (135-145) mmol/L Potassium 4.2 (3.3-5.1) mmol/L Chloride 103 (96-108) mmol/L Carbon Dioxide 24 (22-29) mmol/L Anion Gap 12 (12-20) BUN 13 (9-16) mg/dL Creatinine 0.81 (0.5-1.4) mg/dL Estim Creat Clear Calc 235.1 Estimated GFR > 60 Random Glucose 97 (60-115) mg/dL Calcium 9.3 (8.4-10.2) mg/dL Total Bilirubin 0.6 (0.0-1.0) mg/dL Direct Bilirubin 0.3 (0.0-0.5) mg/dL AST 35 (5-37) U/L ALT 21 (0-40) U/L Alkaline Phosphatase 56 (39-117) U/L Troponin I High Sens 3.7 (<3.5-35.0) ng/L Total Protein 8.0 (6.5-8.0) g/dL Albumin 4.0 (3.5-5.0) g/dL Influenza Type A (PCR) POSITIVE A (Negative) Influenza Type B (PCR) NEGATIVE (Negative) RSV RNA Qual (PCR) NEGATIVE (Negative) SARS-CoV-2 RNA (RT-PCR) NEGATIVE (Negative) Independent Interpretation I performed an independent interpretation of an: Plain X-Ray (Mild central vascular prominence but no overt edema. ) Radiology Impression Discussion of test interpretation with radiology: I have reviewed the radiologist's reading. Chronic Conditions Patient?s care impacted by: Other (asthma) Discharge Plan Discharge Clinical Impression: Upper respiratory infection, Influenza Patient Disposition: Admitted As Inpatient Prescriptions: No Action prednisone 20 mg tablet 40 mg PO DAILY 5 Days Qty: 10 0RF
[2023-03-02 19:33] VITALS: BP 192/72; PULSE 98; RESP 22; TEMP 38.9; O2SAT 92; BMI 77.2
[2023-03-02 21:26] VITALS: PULSE 98; RESP 22; O2SAT 95
[2023-03-02 21:58] LABS: Alanine Aminotransferase 21 U/L (0-40); Alkaline Phosphatase 56 U/L (39-117); Anion Gap 12 (12-20); Aspartate Amino Transferase 35 U/L (5-37); Bilirubin Direct 0.3 mg/dL (0.0-0.5); Bilirubin Total 0.6 mg/dL (0.0-1.0); Blood Urea Nitrogen 13 mg/dL (9-16); Calcium 9.3 mg/dL (8.4-10.2); Carbon Dioxide 24 mmol/L (22-29); Chloride 103 mmol/L (96-108); Creatinine Clr Calc Pharmacy 235.1; Estimated Glomerular Filt Rate > 60; Glucose Random 97 mg/dL (60-115); Potassium 4.2 mmol/L (3.3-5.1); Sodium 135 mmol/L (135-145)
[2023-03-02 22:00] VITALS: BP 154/61; PULSE 104; RESP 18; TEMP 39.2; O2SAT 95
--- NOTE | 2023-03-02 22:51 | PM.IMHP ---
History of Present Illness Date of Service: 03/02/23 Chief Complaint: Dyspnea This is a 52-year-old male with pertinent history of asthma not on home oxygen, essential hypertension, mixed hyperlipidemia, hqi-tqqqwag-whzhlxrlk diabetes mellitus, KELSEY who presents to the emergency department for evaluation of dyspnea. Patient states he started having his symptoms 4 days prior to presentation. He started having dyspnea and nonproductive cough. His dyspnea was progressive and worse with ambulation. No orthopnea or PND. Also has associated generalized body aches, fevers and chills. Endorses wheezing. No sick contacts. Does not use oxygen at home. Is compliant with home inhaler. No chest discomfort, palpitations, abdominal pain, changes in urinary or bowel habits. In the emergency department, patient was tested positive for influenza and was requiring supplemental oxygen. Review of Systems Constitutional: Constitutional: Reports chills, Reports fatigue, Reports fever(s), Reports lethargy and Reports weight loss Cardiovascular: Cardiovascular: Reports dyspnea on exertion Respiratory: Respiratory: Reports cough, Reports dyspnea on exertion and Reports wheezing Endocrine: Endocrine: Reports fatigue Allergic/Immunologic: Allergic/Immunologic: Reports wheezing [facility] Medical History Mixed hyperlipidemia Non-insulin dependent type 2 diabetes mellitus KELSEY (obstructive sleep apnea) Essential hypertension Asthma Pertinent family history: No family history of early CAD Social History Alcohol intake: never Patient Tobacco Use Status: Never used Tobacco Smoked in Last 30 Days: No Use of substances other than those prescribed or required for medical reasons: No Advance Directives: No Advance Directives Information Provided: No Nutrition Risks: No Nutritional Risk Meds Allergies Allergy/AdvReac Type Severity Reaction Status Date / Time Penicillins [PCN] Allergy Rash Verified 03/02/23 19:37 Active Medications: Current Medications Magnesium Sulfate (Magnesium Sulfate/H2o) 2 gm in 50 mls @ 25 mls/hr IV ONCE ONE Stop: 03/02/23 23:18 Last Admin: 03/02/23 21:55 Dose: 25 mls/hr Home Medications Medication Instructions Recorded Confirmed Last Taken Type acetaminophen 325 mg tablet 650 mg PO Q6H PRN Pain 03/02/23 03/02/23 Unknown History (Tylenol) albuterol sulfate 2.5 mg/3 mL 2.5 mg inhalation Q6H PRN wheezing 03/02/23 03/02/23 Unknown History (0.083 %) solution for nebulization albuterol sulfate 90 mcg/actuation 2 puff inhalation Q6H PRN 03/02/23 03/02/23 Unknown History aerosol inhaler (Ventolin HFA) Shortness Of Breath Or Wheezing amlodipine 10 mg tablet 10 mg PO DAILY 03/02/23 03/02/23 03/01/23 History atorvastatin 20 mg tablet 20 mg PO BEDTIME 03/02/23 03/02/23 03/01/23 History fluticasone fur. 200 mcg-umeclid 1 ea inhalation DAILY 03/02/23 03/02/23 03/01/23 History 62.5 mcg-vilant 25 mcg inhalat.powder (Trelegy Ellipta) furosemide 40 mg tablet 40 mg PO DAILY 03/02/23 03/02/23 03/01/23 History hydrochlorothiazide 25 mg tablet 25 mg PO DAILY 03/02/23 03/02/23 03/01/23 History irbesartan 300 mg tablet 300 mg PO DAILY 03/02/23 03/02/23 03/01/23 History levocetirizine 5 mg tablet 5 mg PO DAILY 03/02/23 03/02/23 03/01/23 History montelukast 10 mg tablet 10 mg PO BEDTIME 03/02/23 03/02/23 03/01/23 History pantoprazole 40 mg tablet,delayed 40 mg PO DAILY@0630 03/02/23 03/02/23 03/01/23 History release pentoxifylline 400 mg 400 mg PO TID 03/02/23 03/02/23 03/01/23 History tablet,extended release semaglutide 0.25 mg or 0.5 mg (2 0.25 mg subcut MO@0900 03/02/23 03/02/23 02/28/23 History mg/3 mL) subcutaneous pen injector (Ozempic) Physical Exam Vital Signs and Narrative: Vital Signs: Last Vital Signs Temp 102.5 F H 03/02/23 22:00 Pulse 104 H 03/02/23 22:00 Resp 18 03/02/23 22:00 BP 154/61 H 03/02/23 22:00 Pulse Ox 95 01/03/24 22:00 O2 Del Method Nasal Cannula 03/02/23 22:00 O2 Flow Rate 2 03/02/23 22:00 BMI result Body Mass Index 77.2 Middle-aged male lying in bed in mild distress on supplemental oxygen Neck supple, no JVD Regular rate and rhythm, S1-S2 heard Decreased breath sounds due to body habitus Abdomen soft nontender, no guarding, no rigidity Patient is awake, alert and oriented to self, place, time and person ; no focal motor deficit Psych: Normal mood No pedal edema Results Labs 03/02/23 19:55 03/02/23 19:55 Labs: Laboratory Results - last 24 hr 03/02/23 19:55 MCV 82.8 MCH 25.5 L MCHC 30.8 L RDW 17.1 H Plt Count TNP MPV 10.1 Immature Gran % (Auto) 0.5 H Neut % (Auto) 76.0 H Lymph % (Auto) 8.8 L Barren % (Auto) 14.2 H Eos % (Auto) 0.2 Baso % (Auto) 0.3 Lymph # (Auto) 0.9 L Barren # (Auto) 1.4 H Eos # (Auto) 0.0 Baso # (Auto) 0.0 Abs Immat Gran (auto) 0.05 H Absolute Neuts (auto) 7.4 Absolute Nucleated RBC 0.000 Nucleated RBC % (auto) 0.0 Smear Tech's Comments VERIFIED Anion Gap 12 Estim Creat Clear Calc 235.1 Estimated GFR > 60 Random Glucose 97 Calcium 9.3 Total Bilirubin 0.6 Direct Bilirubin 0.3 AST 35 ALT 21 Alkaline Phosphatase 56 Total Protein 8.0 Albumin 4.0 Influenza Type A (PCR) POSITIVE A Influenza Type B (PCR) NEGATIVE RSV RNA Qual (PCR) NEGATIVE SARS-CoV-2 RNA (RT-PCR) NEGATIVE Imaging Radiologist's Impressions: Impressions Chest X-Ray 03/02/23 20:00 IMPRESSION: Mild central vascular prominence but no overt edema. Assessment and Plan (1) Hypoxia: Status: Acute (2) Influenza: Status: Acute (3) Asthma: Status: Acute Plan This is a 52-year-old male with pertinent history of asthma not on home oxygen, essential hypertension, mixed hyperlipidemia, hyz-cdirped-bkekoxkdb diabetes mellitus, KELSEY who presents to the emergency department for evaluation of dyspnea. #. Acute hypoxemic respiratory failure due to acute exacerbation of asthma in the setting of influenza a: Will admit patient with supplemental oxygen. Initiating systemic steroids. Scheduled and p.r.n. DuoNebs. Also initiating Tamiflu. Continue home inhaler #. Viral sepsis in the setting of above: Blood culture and lactic acid obtained. Defer antibiotics #. Iro-jxxugyp-qmgqiyfes diabetes mellitus: Initiating Accu-Cheks with sliding scale insulin #. Essential hypertension: Continue home antihypertensives #. Morbid obesity: Counseled regarding diet and exercise #. Gastroesophageal reflux disease: On PPI #. KELSEY: Continue CPAP at bedtime DVT prophylaxis: Lovenox Full code Admit as inpatient and will require two night minimum hospital stay for supplemental oxygen, monitoring of respiratory status (as above), which is not possible in a lesser acute setting. Quality Stroke Does the patient have a stroke diagnosis?: No VTE Prior VTE?: No VTE Risk Level:: Medical - moderate - high VTE Device Contraindication: Treatment Not Indicated VTE Drug Contraindication: N/A - Med Ordered
--- NOTE | 2023-03-02 22:52 | PHA.MEDREC ---
Pharmacy Consult ? Medication Reconciliation Pharmacy has completed the medication reconciliation. Utilized registered nurse supervisor services. Per pt and spouse, patient no longer taking metformin or iron. Patient has been using excess supply of HCTZ, Lipitor, Protonix, and Singulair from [place] while waiting to get prescriptions for the medications at their pharmacy. Patient and spouse endorse that they still take them.
[2023-03-02 22:55] VITALS: O2SAT 94
[2023-03-03] VITALS (14 sets, daily range): BP systolic 133–149; BP diastolic 63–94; PULSE 68–96; RESP 16–22; TEMP 36–37.3; O2SAT 91–97
[2023-03-03 00:17] LABS: Appearance Urine Clear; Color Urine Yellow; Glucose Urine UA Negative (Negative); Leukocyte Esterase Urine Negative (Negative); Nitrite Urine Negative (Negative); PH 7.5 (5.0-9.0); UMIC TRIGGER UACC YES; Urine Blood Trace (Negative); Urine Ketones Negative (Negative); Urine Protein Negative (Neg-Trace)
[2023-03-03 00:43] LABS: Bacteria Urine None Seen (None Seen); Hyaline Casts Urine 0-2 /LPF (0-2); Squamous Epithelial Cell Urine 0-2 /HPF (0-2); WBC Urine 0-5 /HPF (0-5)
--- NOTE | 2023-03-03 01:08 | PC.NURSE ---
Pt has diminished lung sounds bilaterally with mild expriatory wheezing. Pt received duoneb treatment at about 0100 with positive effect. Pt now sitting up in bed eating at this time. Respirations equal and mildly labored, skin pink warm and sweaty, alert and oriented x4, no apparent distress at this time
--- NOTE | 2023-03-03 01:22 | PC.NURSE ---
pt reports he is a diabetic and has not ate all day, feeling clammy. This RN checked blood sugar, result of 148. pt also provided with kathleen at this time. report called to overflow
--- NOTE | 2023-03-03 02:45 | PC.NURSE ---
Took care from 2:30am pt able to ambulate with a steady gait, respiratory called for cpap enrobing machine feeder for the evening, pt at the bedside.
--- NOTE | 2023-03-03 05:30 | PC.NURSE ---
medicated pt per mar for headache.
--- NOTE | 2023-03-03 05:53 | PC.NURSE ---
pt out of bed, ambulating to bathroom.
[2023-03-03 06:27] LABS: MANUAL DIFF FLAG NO
[2023-03-03 06:31] LABS: Basophils Percent Auto 0.1 % (0-2); Hematocrit 43.4 % (42.0-52.0); Hemoglobin 13.4 g/dl (14.0-18.0); Imm Gran Abs Auto 0.05 X10*3/uL (0.00-0.03); Imm Gran Pct Auto 0.5 % (0.0-0.4); Lymphocytes Absolute Auto 0.8 X10*3/uL (1.2-4.9); Lymphocytes Percent Auto 8.2 % (20-40); Mean Corpuscular HGB Conc 30.9 g/dl (31.0-36.0); Mean Corpuscular Hemoglobin 25.7 pg (27.0-33.0); Mean Corpuscular Volume 83.1 fL (80.0-98.0); Mean Platelet Volume 9.3 fL (9.4-12.4); Monocytes Absolute Auto 0.4 X10*3/uL (0.1-1.2); Monocytes Percent Auto 4.2 % (2-11); Neutrophils Absolute Auto 8.1 x10*3/uL (2.0-8.3); Platelet Count 239 X10*3/uL (160-400); Red Blood Count 5.22 X10*6/uL (4.60-5.80); White Blood Count 9.3 X10*3/uL (4.8-10.8)
--- NOTE | 2023-03-03 06:47 | PC.NURSE ---
medicated per Mar.
[2023-03-03 06:48] LABS: Anion Gap 17 (12-20); Blood Urea Nitrogen 13 mg/dL (9-16); Calcium 9.5 mg/dL (8.4-10.2); Carbon Dioxide 23 mmol/L (22-29); Chloride 101 mmol/L (96-108); Creatinine Clr Calc Pharmacy 216.4; Estimated Glomerular Filt Rate > 60; Glucose Random 190 mg/dL (60-115); Potassium 3.7 mmol/L (3.3-5.1); Sodium 137 mmol/L (135-145)
[2023-03-03 08:43] LABS: Procalcitonin 0.08 ng/mL
--- NOTE | 2023-03-03 11:22 | PC.NURSE ---
Pt's medications given with credit coordinator assisting. questions answered. Pt ambulatory around unit and to bathroom. offered supplies to have pt take a shower, not interested at this time.
--- NOTE | 2023-03-03 13:08 | PC.NURSE ---
Requested pentoxifylline from pharmacy
--- NOTE | 2023-03-03 13:38 | HO.PM.IMPN ---
Subjective Subjective Date of Service: 03/03/23 Interval History: This history was taken in Green[place]ic from the patient. Fever resolved Still short of breath Review of Systems Review of Systems: Yes all other systems are reviewed and are negative Physical Exam Vital Signs: Vital Signs: Last Vital Signs Temp 98.1 F 03/03/23 08:00 Pulse 74 03/03/23 11:30 Resp 18 03/03/23 11:30 BP 145/71 H 03/03/23 08:00 Pulse Ox 95 03/03/23 08:00 O2 Del Method Shovel Mask 03/03/23 08:00 O2 Flow Rate 5 03/03/23 08:00 Oxygen Flow Rate 2 03/02/23 22:55 BMI result Body Mass Index 77.2 Gen: short of breath HEENT: sclera anicteric, moist mucus membranes Neck: supple Lungs: diminished Heart: distant heart sounds Abd: soft, non-tender, non-distended, morbidly obese Ext: no edema Skin: warm/well-perfused Neuro: alert and oriented x3, no focal findings Psych: appropriate affect Objective Data Active Medications Acetaminophen (Acetaminophen 325 Mg Tablet) 650 mg PO Q6H PRN PRN Reason: Pain, Mild (Pain Scale 1-3) Last Admin: 03/03/23 05:29 Dose: 650 mg Documented By: JOSE LUIS Albuterol/Ipratropium (Albuterol/Iprat 2.5/0.5mg 3 Ml Ampul.Neb) 3 ml INHALE RQ4H WHILE AWAKE [facility] Last Admin: 03/03/23 11:29 Dose: 3 ml Documented By: GWEN Albuterol/Ipratropium (Albuterol/Iprat 2.5/0.5mg 3 Ml Ampul.Neb) 3 ml INHALE Q4H PRN PRN Reason: Wheezing Last Admin: 03/03/23 00:54 Dose: 3 ml Documented By: CHIQUIS Amlodipine Besylate (Amlodipine Besylate 10 Mg Tablet) 10 mg PO DAILY [facility]; Protocol Last Admin: 03/03/23 10:32 Dose: 10 mg Documented By: CINTHIA Atorvastatin Calcium (Atorvastatin Calcium 20 Mg Tablet) 20 mg PO BEDTIME [facility] Dextrose (Dextrose 50 % 25 Gm/50 Ml Syringe) 25 gm IVPUSH Q15M PRN; Protocol PRN Reason: per Hypoglycemia Standing Ord. Enoxaparin Sodium (Enoxaparin Sodium 40 Mg/0.4 Ml Syringe) 40 mg SUBCUT Q12H [facility] Last Admin: 03/03/23 10:34 Dose: 40 mg Documented By: CINTHIA Fluticasone/Umeclidinium/Vilanterol (Fluticasone/Umeclidinium/Vilanterol 200/62.5/25 Blst.W.Dev) 1 puff INHALE DAILY [facility] Last Admin: 03/03/23 10:46 Dose: 1 puff Documented By: CINTHIA Furosemide (Furosemide 40 Mg Tablet) 40 mg PO DAILY [facility]; Protocol Last Admin: 03/03/23 10:32 Dose: 40 mg Documented By: CINTHIA Glucose (Glucose Gel 15 Gm Gel..Gram.) 15 gm PO Q15M PRN; Protocol PRN Reason: per Hypoglycemia Standing Ord. Hydrochlorothiazide (Hydrochlorothiazide 25 Mg Tablet) 25 mg PO DAILY [facility]; Protocol Last Admin: 03/03/23 10:32 Dose: 25 mg Documented By: CINTHIA Insulin Human Lispro (Insulin Lispro 100 Unit/Ml 3 Ml Vial) 0 unit SUBCUT QIDACHS [facility]; Protocol Last Admin: 03/03/23 11:32 Dose: 4 unit Documented By: CINTHIA Melatonin (Melatonin 3 Mg Tablet) 6 mg PO BEDTIME PRN PRN Reason: Insomnia Methylprednisolone Sodium Succinate (Methylprednisolone Sod Succ 40 Mg/Ml Vial) 40 mg IVPUSH Q12H [facility] Last Admin: 03/03/23 08:01 Dose: 40 mg Documented By: CINTHIA Montelukast Sodium (Montelukast Sodium 10 Mg Tablet) 10 mg PO BEDTIME [facility] Non-Formulary Medication (Levocetirizine) 5 mg PO DAILY [facility] Omeprazole (Omeprazole 20 Mg Capsule.Dr) 20 mg PO DAILY@0630 [facility] Last Admin: 03/03/23 06:44 Dose: 20 mg Documented By: JOSE LUIS Ondansetron HCl (Ondansetron Hcl 4 Mg/2 Ml Vial) 4 mg IVPUSH Q8H PRN PRN Reason: Nausea and Vomiting Oseltamivir Phosphate (Oseltamivir Phosphate 75 Mg Capsule) 75 mg PO Q12H [facility] Stop: 03/07/23 11:01 Last Admin: 03/03/23 10:46 Dose: 75 mg Documented By: CINTHIA Pentoxifylline (Pentoxifylline Er 400 Mg Tablet.Er) 400 mg PO TID [facility] Last Admin: 03/03/23 10:33 Dose: 400 mg Documented By: CINTHIA Sodium Chloride (0.9 % Sodium Chloride Flush 3 Ml Syringe) 3 ml IVFLUSH QSHIFT [facility] Last Admin: 03/03/23 08:02 Dose: 3 ml Documented By: CINTHIA Valsartan (Valsartan 160 Mg Tablet) 160 mg PO DAILY [facility] Last Admin: 03/03/23 10:32 Dose: 160 mg Documented By: CINTHIA Labs 03/03/23 06:10 03/03/23 06:10 Labs: Laboratory Results - last 24 hr 03/02/23 03/03/23 03/03/23 19:55 00:00 00:05 MCV 82.8 MCH 25.5 L MCHC 30.8 L RDW 17.1 H Plt Count TNP MPV 10.1 Immature Gran % (Auto) 0.5 H Neut % (Auto) 76.0 H Lymph % (Auto) 8.8 L Hill % (Auto) 14.2 H Eos % (Auto) 0.2 Baso % (Auto) 0.3 Lymph # (Auto) 0.9 L Hill # (Auto) 1.4 H Eos # (Auto) 0.0 Baso # (Auto) 0.0 Abs Immat Gran (auto) 0.05 H Absolute Neuts (auto) 7.4 Absolute Nucleated RBC 0.000 Nucleated RBC % (auto) 0.0 Smear Tech's Comments VERIFIED Anion Gap 12 Estim Creat Clear Calc 235.1 Estimated GFR > 60 POC Glucose Random Glucose 97 Lactic Acid 1.1 Calcium 9.3 Total Bilirubin 0.6 Direct Bilirubin 0.3 AST 35 ALT 21 Alkaline Phosphatase 56 Total Creatine Kinase B-Natriuretic Peptide 12 Total Protein 8.0 Albumin 4.0 Procalcitonin Urine Color Yellow Urine Appearance Clear Urine pH 7.5 Ur Specific [place] 1.020 Urine Protein Negative Urine Glucose (UA) Negative Urine Ketones Negative Urine Blood Trace H Urine Nitrite Negative Ur Leukocyte Esterase Negative Urine RBC 6-10 H Urine WBC 0-5 Ur Squamous Epith Cells 0-2 Urine Bacteria None Seen Hyaline Casts 0-2 Influenza Type A (PCR) POSITIVE A Influenza Type B (PCR) NEGATIVE RSV RNA Qual (PCR) NEGATIVE SARS-CoV-2 RNA (RT-PCR) NEGATIVE 03/03/23 03/03/23 03/03/23 01:17 06:10 07:47 MCV 83.1 MCH 25.7 L MCHC 30.9 L RDW 17.0 H Plt Count 239 MPV 9.3 L Immature Gran % (Auto) 0.5 H Neut % (Auto) 87.0 H Lymph % (Auto) 8.2 L Hill % (Auto) 4.2 Eos % (Auto) 0.0 Baso % (Auto) 0.1 Lymph # (Auto) 0.8 L [place] # (Auto) 0.4 Eos # (Auto) 0.0 Baso # (Auto) 0.0 Abs Immat Gran (auto) 0.05 H Absolute Neuts (auto) 8.1 Absolute Nucleated RBC 0.000 Nucleated RBC % (auto) 0.0 Smear Tech's Comments Anion Gap 17 Estim Creat Clear Calc 216.4 Estimated GFR > 60 POC Glucose 148 H 174 H Random Glucose 190 H Lactic Acid Calcium 9.5 Total Bilirubin Direct Bilirubin AST ALT Alkaline Phosphatase Total Creatine Kinase 547 H B-Natriuretic Peptide Total Protein Albumin Procalcitonin 0.08 Urine Color Urine Appearance Urine pH Ur Specific [place] Urine Protein Urine Glucose (UA) Urine Ketones Urine Blood Urine Nitrite Ur Leukocyte Esterase Urine RBC Urine WBC Ur Squamous Epith Cells Urine Bacteria Hyaline Casts Influenza Type A (PCR) Influenza Type B (PCR) RSV RNA Qual (PCR) SARS-CoV-2 RNA (RT-PCR) 03/03/23 11:22 MCV MCH MCHC RDW Plt Count MPV Immature Gran % (Auto) Neut % (Auto) Lymph % (Auto) Hill % (Auto) Eos % (Auto) Baso % (Auto) Lymph # (Auto) Hill # (Auto) Eos # (Auto) Baso # (Auto) Abs Immat Gran (auto) Absolute Neuts (auto) Absolute Nucleated RBC Nucleated RBC % (auto) Smear Tech's Comments Anion Gap Estim Creat Clear Calc Estimated GFR POC Glucose 204 H Random Glucose Lactic Acid Calcium Total Bilirubin Direct Bilirubin AST ALT Alkaline Phosphatase Total Creatine Kinase B-Natriuretic Peptide Total Protein Albumin Procalcitonin Urine Color Urine Appearance Urine pH Ur Specific [place] Urine Protein Urine Glucose (UA) Urine Ketones Urine Blood Urine Nitrite Ur Leukocyte Esterase Urine RBC Urine WBC Ur Squamous Epith Cells Urine Bacteria Hyaline Casts Influenza Type A (PCR) Influenza Type B (PCR) RSV RNA Qual (PCR) SARS-CoV-2 RNA (RT-PCR) Assessment and Plan (1) Hypoxia: Status: Acute Plan d2 52yo M with morbid obesity, asthma, KELSEY on CPAP, HTN, HLD, and DM2 presents with 4d of flu-like symptoms amd found to be hypoxic from influenza A AHRF + viral sepsis + acute exacerbation of mod persistent asthma due to influenza A - methylprednisolone 03/02- - oseltamivir 03/02-03/07/23 - standing/prn nebs - wean O2 as tolerated - continue controller inhaler [Trelegy] + anti-allergy meds [montelukast, levocetirizine] DM2 - correction-dose lispro HTN - continue HCTZ + valsartan + amlodipine HLD - atorvastatin morbid obesity - diet/exercise counseling KELSEY - CPAP at night VTE ppx - LMWH dosed for obesity dispo - TBD In my clinical judgment, the patient requires continued inpatient hospitalization for the following reasons: hypoxia Total time managing care of this patient today: 35 minutes. Quality Stroke Does the patient have a stroke diagnosis?: No VTE Prior VTE?: No VTE Risk Level:: Medical - moderate - high VTE Device Contraindication: Treatment Not Indicated VTE Drug Contraindication: N/A - Med Ordered
[2023-03-04] VITALS (7 sets, daily range): BP systolic 125–150; BP diastolic 60–80; PULSE 61–83; RESP 16–20; TEMP 35.5–36.7; O2SAT 93–98
--- NOTE | 2023-03-04 09:56 | MHC.CM.PN ---
Addendum entered by Irais Talavera RN 03/04/23 14:43: PT recommending home w/ services. Patient prefers [facility], who has accepted. Patient is medically cleared for DC. to transport home at approx 5pm. Addendum entered by Irais Talavera RN 03/04/23 12:31: PT eval pending Original Note: IMM DELIVERED. PATIENT IS FROM HOME WITH , SON AND FATHER. HE AMBULATES W [employer]EARM CRUTCHES. ASSISTS W/ ADL'S PRN. HAS CPAP- UNSURE OF SUPPLIER. NO SERVICES. PCP: GILDA GIBSON MD AT [facility] HCP: CM PROVIDED EDUCATION, PATIENT PREFERS TO COMPLETE WITH PCP. DP: GOAL IS HOME W/ FAMILY SUPPORT. TO TRANSPORT. CM WILL FOLLOW.
--- NOTE | 2023-03-04 14:10 | W.MHC.F2F ---
Service Date Service Date: 03/04/23 Encounter Date of encounter: 03/04/23 Reasons for Services Signs and symptoms assessed: Dyspnea on Exertion,Gross Deconditioning, Impaired Bed Mobility, Inability to Dress Self, Muscle Weakness ,Pain Reason for prison: medication management, medication treatment and teach disease management Reason for physical therapy: home safety and mobility, therapeutic exercises, gait/transfer training, assess need for DME, ADL training and energy conservation MD Overseeing Care: Javier Walker Homebound: Leaving the home is medically contraindicated at this time without the asist of a device and/or another person due th the listed conditions above and below. Reason homebound: shortness of breath with minimal effort Homebound supporting statement: attach PT eval from 03/04/23 Bed Mobility, Transfer Training,Gait Training, Therapeutic Activities, Therapeutic Exercise,Neuro Re-education, Patient Education, Safety,Balance Certification: Based on the above findings, I certify that this patient is confined to the home and needs intermittent prison care, physical therapy and/or speech therapy, or continues to need occupational therapy. The patient is under my care, and I have initiated the establishment of the plan of care. The patient will be followed by a physician who will periodically review the plan of care. Time Spent With Patient Time: Total time managing care of this patient today ____ minutes.
--- NOTE | 2023-03-04 14:17 | PM.DS ---
DS: Providers Provider Date of Service: 03/04/23 Date of admission: 03/02/23 22:49 Date of discharge: 03/04/23 Primary care physician: Javier Walker MD Consults: 03/04/23 01:46 Consult to Wound Care Routine Reason for consultation: adebayo leg redness DS: Diagnosis Discharge Diagnosis (1) Hypoxia: Status: Acute (2) Influenza A: Status: Acute (3) Moderate persistent asthma with (acute) exacerbation: Status: Acute (4) Acute respiratory failure with hypoxia: Status: Acute (5) Morbid obesity: Status: Acute DS: Summary Hospital Course Hospital Course: From the history and physical by the admitting hospitalist, Brandon Ortiz MD, 03/02/23: This is a 52-year-old male with pertinent history of asthma not on home oxygen, essential hypertension, mixed hyperlipidemia, [id number] diabetes mellitus, KELSEY who presents to the emergency department for evaluation of dyspnea. Patient states he started having his symptoms 4 days prior to presentation. He started having dyspnea and nonproductive cough. His dyspnea was progressive and worse with ambulation. No orthopnea or PND. Also has associated generalized body aches, fevers and chills. Endorses wheezing. No sick contacts. Does not use oxygen at home. Is compliant with home inhaler. No chest discomfort, palpitations, abdominal pain, changes in urinary or bowel habits. In the emergency department, patient was tested positive for influenza and was requiring supplemental oxygen. 52yo M with morbid obesity, asthma, KELSEY on CPAP, HTN, HLD, and DM2 presents with 4d of flu-like symptoms add found to be hypoxic from influenza A. He was treated with supplemental oxygen and weaned off it; methylprednisolone IV; and PO oseltamivir. He improved and was discharged on prednisone taper and oseltamivir with VNA servies. Time Attestation Total time managing care of this patient today: 35 mintues. Discharge coordination time: Greater than 30 minutes Quality: Safe Use of Opioids Does Pt have an Active Cancer Diagnosis on the Problem List?: No Quality: Stroke Does the patient have a stroke diagnosis?: No Physical Exam Vital Signs: Vital Signs: Last Vital Signs Temp 96 F L 03/04/23 06:57 Pulse 70 03/04/23 12:03 Resp 18 03/04/23 11:56 BP 150/80 H 03/04/23 06:57 Pulse Ox 93 01/05/24 06:57 O2 Del Method Room Air 03/04/23 06:57 O2 Flow Rate 5 03/03/23 08:00 Oxygen Flow Rate 2 03/02/23 22:55 BMI result Body Mass Index 77.2 Gen: in no acute distress HEENT: sclera anicteric, moist mucus membranes Neck: supple Lungs: clear to auscultation bilaterally Heart: regular rate and rhythm, no murmurs Abd: soft, non-tender, non-distended, obese Ext: no edema Skin: warm/well-perfused Neuro: alert and oriented x3, no focal findings Psych: appropriate affect DS: Data Data Completed and Pending Completed studies during hospitalization [Text1]: Laboratory Results WBC 9.3 X10*3/uL (4.8-10.8) 03/03/23 06:10 RBC 5.22 X10*6/uL (4.60-5.80) 03/03/23 06:10 Hgb 13.4 g/dl (14.0-18.0) L 03/03/23 06:10 Hct 43.4 % (42.0-52.0) 03/03/23 06:10 MCV 83.1 fL (80.0-98.0) 03/03/23 06:10 MCH 25.7 pg (27.0-33.0) L 03/03/23 06:10 MCHC 30.9 g/dl (31.0-36.0) L 03/03/23 06:10 RDW 17.0 % (11.0-16.0) H 03/03/23 06:10 Plt Count 239 X10*3/uL (160-400) 03/03/23 06:10 MPV 9.3 fL (9.4-12.4) L 03/03/23 06:10 Immature Gran % (Auto) 0.5 % (0.0-0.4) H 03/03/23 06:10 Neut % (Auto) 87.0 % (45-73) H 03/03/23 06:10 Lymph % (Auto) 8.2 % (20-40) L 03/03/23 06:10 [place] % (Auto) 4.2 % (2-11) 03/03/23 06:10 Eos % (Auto) 0.0 % (0-4) 03/03/23 06:10 Baso % (Auto) 0.1 % (0-2) 03/03/23 06:10 Lymph # (Auto) 0.8 X10*3/uL (1.2-4.9) L 03/03/23 06:10 [place] # (Auto) 0.4 X10*3/uL (0.1-1.2) 03/03/23 06:10 Eos # (Auto) 0.0 X10*3/uL (0.0-0.4) 03/03/23 06:10 Baso # (Auto) 0.0 X10*3/uL (0.0-0.2) 03/03/23 06:10 Abs Immat Gran (auto) 0.05 X10*3/uL (0.00-0.03) H 03/03/23 06:10 Absolute Neuts (auto) 8.1 x10*3/uL (2.0-8.3) 03/03/23 06:10 Absolute Nucleated RBC 0.000 X10*3/uL (0.0-0.012) 03/03/23 06:10 Nucleated RBC % (auto) 0.0 /100WBC (0.0-0.2) 03/03/23 06:10 Smear Tech's Comments VERIFIED 03/02/23 19:55 Sodium 137 mmol/L (135-145) 03/03/23 06:10 Potassium 3.7 mmol/L (3.3-5.1) 03/03/23 06:10 Chloride 101 mmol/L (96-108) 03/03/23 06:10 Carbon Dioxide 23 mmol/L (22-29) 03/03/23 06:10 Anion Gap 17 (12-20) 03/03/23 06:10 BUN 13 mg/dL (9-16) 03/03/23 06:10 Creatinine 0.88 mg/dL (0.5-1.4) 03/03/23 06:10 Estim Creat Clear Calc 216.4 03/03/23 06:10 Estimated GFR > 60 03/03/23 06:10 POC Glucose 158 mg/dL (60-115) H 03/04/23 11:56 Random Glucose 190 mg/dL (60-115) H 03/03/23 06:10 Lactic Acid 1.1 mmol/L (0.5-2.0) 03/03/23 00:00 Calcium 9.5 mg/dL (8.4-10.2) 03/03/23 06:10 Total Bilirubin 0.6 mg/dL (0.0-1.0) 03/02/23 19:55 Direct Bilirubin 0.3 mg/dL (0.0-0.5) 03/02/23 19:55 AST 35 U/L (5-37) 03/02/23 19:55 ALT 21 U/L (0-40) 03/02/23 19:55 Alkaline Phosphatase 56 U/L (39-117) 03/02/23 19:55 Total Creatine Kinase 547 U/L (38-174) H 03/03/23 06:10 Troponin I High Sens 3.7 ng/L (<3.5-35.0) 03/02/23 19:55 B-Natriuretic Peptide 12 pg/mL (<100) 03/03/23 00:00 Total Protein 8.0 g/dL (6.5-8.0) 03/02/23 19:55 Albumin 4.0 g/dL (3.5-5.0) 03/02/23 19:55 Procalcitonin 0.08 ng/mL 03/03/23 06:10 Urine Color Yellow 03/03/23 00:05 Urine Appearance Clear 03/03/23 00:05 Urine pH 7.5 (5.0-9.0) 03/03/23 00:05 Ur Specific Reading 1.020 (1.005-1.025) 03/03/23 00:05 Urine Protein Negative mg/dL (Neg-Trace) 03/03/23 00:05 Urine Glucose (UA) Negative mg/dL (Negative) 03/03/23 00:05 Urine Ketones Negative mg/dL (Negative) 03/03/23 00:05 Urine Blood Trace (Negative) H 03/03/23 00:05 Urine Nitrite Negative (Negative) 03/03/23 00:05 Ur Leukocyte Esterase Negative (Negative) 03/03/23 00:05 Urine RBC 6-10 /HPF (0-2) H 03/03/23 00:05 Urine WBC 0-5 /HPF (0-5) 03/03/23 00:05 Ur Squamous Epith Cells 0-2 /HPF (0-2) 03/03/23 00:05 Urine Bacteria None Seen (None Seen) 03/03/23 00:05 Hyaline Casts 0-2 /LPF (0-2) 03/03/23 00:05 Influenza Type A (PCR) POSITIVE (Negative) A 03/02/23 19:55 Influenza Type B (PCR) NEGATIVE (Negative) 03/02/23 19:55 RSV RNA Qual (PCR) NEGATIVE (Negative) 03/02/23 19:55 SARS-CoV-2 RNA (RT-PCR) NEGATIVE (Negative) 03/02/23 19:55 Impressions Chest X-Ray 03/02/23 20:00 IMPRESSION: Mild central vascular prominence but no overt edema. Discharge Plan Discharge Anticipated Discharge Date/Time: 03/04/23 14:09 Patient Disposition: Home Health Service Discharge Diagnosis: asthma exacerbation due to influenza Referrals: Javier Walker MD [Primary Care Provider] - 1 Week Discharge Medications: New oseltamivir [Tamiflu] 75 mg Capsule 75 mg PO Q12H Qty: 6 0RF prednisone 10 mg tablet See Rx Instructions .ROUTE .COMPLEX Qty: 42 0RF Rx Instructions: 40 mg (4 tabs) twice daily x 2 days, then 30 mg (3 tabs) twice daily x 2 days, then 20 mg (2 tabs) twice daily x 2 days, then 10 mg (1 tab) twice daily x 2 days, then 5 mg (half tab) twice daily x 2 days Continued furosemide 40 mg tablet 40 mg PO DAILY atorvastatin 20 mg tablet 20 mg PO BEDTIME albuterol sulfate 2.5 mg /3 mL (0.083 %) solution for nebulization 2.5 mg inhalation Q6H PRN (Reason: wheezing) pentoxifylline 400 mg tablet extended release 400 mg PO TID amlodipine 10 mg tablet 10 mg PO DAILY pantoprazole 40 mg tablet,delayed release (DR/EC) 40 mg PO DAILY@0630 montelukast 10 mg tablet 10 mg PO BEDTIME hydrochlorothiazide 25 mg tablet 25 mg PO DAILY albuterol sulfate [Ventolin HFA] 90 mcg/actuation HFA aerosol inhaler 2 puff INHALATION Q6H PRN (Reason: Shortness Of Breath Or Wheezing) irbesartan 300 mg tablet 300 mg PO DAILY levocetirizine 5 mg tablet 5 mg PO DAILY Trelegy Ellipta 200-62.5-25 mcg blister with device 1 ea INHALATION DAILY Ozempic 0.25 mg or 0.5 mg (2 mg/3 mL) pen injector 0.25 mg subcut MO@0900 acetaminophen [Tylenol] 325 mg Tablet 650 mg PO Q6H PRN (Reason: Pain) Discharge Orders: Discharge Order (Routine); Ordered 03/04/23 Ordered By: Cy Albert Diet: Advance to usual diet Activity on Discharge: As tolerated Stand Alone Forms: Patient Portal Discharge page Care Plan Goals: recovery from influenza Health Concerns: asthma exacerbation due to influenza Plan of Treatment: oseltamivir: 75 mg twice daily x 3 days prednisone taper: 40 mg (4 tabs) twice daily x 2 days, then 30 mg (3 tabs) twice daily x 2 days, then 20 mg (2 tabs) twice daily x 2 days, then 10 mg (1 tab) twice daily x 2 days, then 5 mg (half tab) twice daily x 2 days Please follow up with your primary care doctor within 1 week. Return to the hospital if you experience recurrent or worsening symptoms. Assessment: See Discharge Summary.
--- NOTE | 2023-03-04 14:54 | HO.WOUND ---
Wound Consult: Initial 52yr old male admitted to [facility] on?03/02/23 22:49 - See progress notes and H&P for detailed history. Wound consult placed for Bilateral Legs redness. Arrival to bedside pt is agreeable to assessment. He denies pain and or tenderness and denies open wounds. Bilateral lower legs were assessed dry venous dermatitis no open wounds - hemosiderin staining noted. No topical interventions needed at this time. Pt requested no lotion at this time - vaseline left at the bedside and recommend to moisturize lower legs to help keep tissue intact. Re-consult wound care Nurse for wound deterioration or wound changes.
== END 2023-03-04 18:40 | disposition home health service (06) | DRG 194 ==
LOC: HO.ED 22:20 → HO.EDOVER 22:54 → HO.S3 03-03 13:31
PROVIDERS: Physician Assistant; Admitting Provider Student in an Organized Health Care Education/Training Program; Emergency Provider Emergency Medicine; PCP Student in an Organized Health Care Education/Training Program; Visit Provider Family Medicine
DX: J10.1 Influenza due to other identified influenza virus with other respiratory manifestations (principal); J45.41 Moderate persistent asthma with (acute) exacerbation; Z68.45 Body mass index [BMI] 70 or greater, adult; I10 Essential (primary) hypertension; E78.2 Mixed hyperlipidemia; E66.01 Morbid (severe) obesity due to excess calories; G47.33 Obstructive sleep apnea (adult) (pediatric); Z88.0 Allergy status to penicillin; Z79.899 Other long term (current) drug therapy
CPT/HCPCS: 0241U; 36415; 71046; 80048; 80076; 81001; 82550; 82947; 83605; 83880; 84145; 84484; 85025; 87040; 93005; 94640; 94660; 97162; 99221; 99285; J1650; J2920; J2930; J3475

== ENCOUNTER → 2023-03-02 19:36 | Outpatient (BNV) | payer OTHER, SELFPAY | PROVIDERS: Admitting Provider Student in an Organized Health Care Education/Training Program; Emergency Provider Emergency Medicine; Visit Provider Internal Medicine Cardiovascular Disease | DX: R07.9 Chest pain, unspecified (principal) | CPT/HCPCS: 93010 ==

== ENCOUNTER → 2023-03-02 22:49 | Outpatient (BNV) | payer OTHER, SELFPAY | PROVIDERS: Admitting Provider Student in an Organized Health Care Education/Training Program; Emergency Provider Emergency Medicine; Visit Provider Student in an Organized Health Care Education/Training Program | DX: J96.01 Acute respiratory failure with hypoxia (principal); J10.1 Influenza due to other identified influenza virus with other respiratory manifestations; J45.41 Moderate persistent asthma with (acute) exacerbation; E66.01 Morbid (severe) obesity due to excess calories; Z68.45 Body mass index [BMI] 70 or greater, adult | CPT/HCPCS: 99222; 99232; 99239; G0180 ==

== ENCOUNTER 2024-05-17 19:09 | Emergency (ER) | payer OTHER, SELFPAY ==
--- NOTE | ~2024-05-17 | XR_ITS ---
CLINICAL HISTORY: sob 1 view chest x-ray Comparison: CR/SR - XR CHEST 2V - 03/02/23 20:00 EST Findings: The lungs are clear. Normal size heart. No acute fracture. IMPRESSION: 1. No acute findings. This document has been electronically signed by: Penny Trotter MD on 05/17/2024 20:32:08
--- NOTE | 2024-05-17 19:19 | ED_ITS ---
HPI - SOB/Dyspnea General Chief Complaint: Dyspnea Stated Complaint: SOB, bilat wheezing, 100% on 2nd duoneb Time Seen by Provider: 05/17/24 19:19 Source: patient Mode of arrival: EMS Limitations: no limitations History of Present Illness ED Provider: HPI Narrative: Patient is 53 years old with history of asthma sleep apnea on CPAP at home, hypertension been feeling short of breath with dry cough for last 3 weeks been using nebulizing treatment at home got worse for last 3 days no fever no chills no chest pain no palpitation patient does have chronic lymphedema patient has received 2 DuoNeb treatment and Solu-Medrol by the EMS prior arrival feeling much better now saturating 95-96% room air no prior intubation Related Data Home Medications ?Medication ?Instructions ?Recorded ?Confirmed acetaminophen 325 mg tablet 650 mg PO Q6H PRN Pain 03/02/23 03/02/23 (Tylenol) albuterol sulfate 2.5 mg/3 mL 2.5 mg inhalation Q6H PRN wheezing 03/02/23 03/02/23 (0.083 %) solution for nebulization albuterol sulfate 90 mcg/actuation 2 puff inhalation Q6H PRN 03/02/23 03/02/23 aerosol inhaler (Ventolin HFA) Shortness Of Breath Or Wheezing amlodipine 10 mg tablet 10 mg PO DAILY 03/02/23 03/02/23 atorvastatin 20 mg tablet 20 mg PO BEDTIME 03/02/23 03/02/23 fluticasone fur. 200 mcg-umeclid 1 ea inhalation DAILY 03/02/23 03/02/23 62.5 mcg-vilant 25 mcg inhalat.powder (Trelegy Ellipta) furosemide 40 mg tablet 40 mg PO DAILY 03/02/23 03/02/23 hydrochlorothiazide 25 mg tablet 25 mg PO DAILY 03/02/23 03/02/23 irbesartan 300 mg tablet 300 mg PO DAILY 03/02/23 03/02/23 levocetirizine 5 mg tablet 5 mg PO DAILY 03/02/23 03/02/23 montelukast 10 mg tablet 10 mg PO BEDTIME 03/02/23 03/02/23 pantoprazole 40 mg tablet,delayed 40 mg PO DAILY@0630 03/02/23 03/02/23 release pentoxifylline 400 mg 400 mg PO TID 03/02/23 03/02/23 tablet,extended release semaglutide 0.25 mg or 0.5 mg (2 0.25 mg subcut MO@0900 03/02/23 03/02/23 mg/3 mL) subcutaneous pen injector (Ozempic) Previous Rx's ?Medication ?Instructions ?Recorded oseltamivir 75 mg capsule (Tamiflu) 75 mg PO Q12H #6 caps 03/04/23 prednisone 10 mg tablet See Rx Instructions .Route 03/04/23 .COMPLEX #42 tabs prednisone 20 mg tablet 60 mg (3 x 20 mg) PO DAILY #15 tabs 05/17/24 Allergies Allergy/AdvReac Type Severity Reaction Status Date / Time Penicillins [PCN] Allergy Rash Verified 05/17/24 19:22 Review of Systems 2 Review of Systems: Yes all other systems are reviewed and are negative [facility] Past Medical History Medical History Mixed hyperlipidemia Non-insulin dependent type 2 diabetes mellitus KELSEY (obstructive sleep apnea) Essential hypertension Asthma Social History Social History Household Members: Family Housing: Apartment Do you presently have visiting nurse or other home services: No Alcohol intake: never Patient Tobacco Use Status: Never used Tobacco Second Hand Smoke Exposure: No Advance Directives: No Advance Directives Information Provided: No Do you have a plan to hurt others: No Plan service: No Physical Exam 2 Vital Signs: Vital Signs: Last Vital Signs Temp 98.1 F 05/17/24 19:20 Pulse 74 05/17/24 19:20 Resp 20 05/17/24 19:20 BP 157/80 H 05/17/24 19:20 Pulse Ox 97 05/17/24 19:20 O2 Del Method Room Air 05/17/24 19:20 BMI result Body Mass Index 89.9 Appearance: Alert. Oriented X3. No acute distress. Obese Eyes: No pallor or icterus ENT: Pharynx normal. Oral Mucosa moist Neck: Normal inspection. Neck supple. CVS: Normal heart rate and rhythm. Pulses normal. Respiratory: No respiratory distress. Equal air entry bilateral, decreased air entry bilaterally Abdomen: Soft and nontender. Bowel sounds are present, no mass palpable, no CVA tenderness Skin: Skin warm and dry. Normal skin color. Normal skin turgor. Extremities: ++ lower extremity edema. No calf tenderness Neuro: Oriented X 3. No motor deficit. Medical Decision Making Medical Decision Making [facility] Narrative: Patient with moderate asthma with obesity with sleep apnea comes here for increased shortness a breath and wheezing which improved after getting 2 DuoNeb treatment and Solu-Medrol by the EMS during stay in the ER patient has been saturating 95% at room air labs are stable no signs of CHF will discharge patient home on prednisone advised to follow up with PCP advised to use nebulizer treatment every 4-6 hours Lab Data [facility] Lab Attestation statement: I reviewed the patient's lab results. 05/17/24 19:31 05/17/24 19:31 Labs: Lab Results 05/17/24 05/17/24 05/17/24 Range/Units 19:20 19:31 19:38 WBC 14.3 H (4.8-10.8) X10*3/uL RBC 4.89 (4.60-5.80) X10*6/uL Hgb 12.5 L (14.0-18.0) g/dl Hct 39.4 L (42.0-52.0) % MCV 80.6 (80.0-98.0) fL MCH 25.6 L (27.0-33.0) pg MCHC 31.7 (31.0-36.0) g/dl RDW 16.3 H (11.0-16.0) % Plt Count 246 (160-400) X10*3/uL MPV 8.9 L (9.4-12.4) fL Immature Gran % (Auto) 0.4 (0.0-0.4) % Neut % (Auto) 69.3 (45-73) % Lymph % (Auto) 22.2 (20-40) % [place] % (Auto) 6.9 (2-11) % Eos % (Auto) 0.8 (0-4) % Baso % (Auto) 0.4 (0-2) % Lymph # (Auto) 3.2 (1.2-4.9) X10*3/uL [place] # (Auto) 1.0 (0.1-1.2) X10*3/uL Eos # (Auto) 0.1 (0.0-0.4) X10*3/uL Baso # (Auto) 0.1 (0.0-0.2) X10*3/uL Abs Immat Gran (auto) 0.06 H (0.00-0.03) X10*3/uL Absolute Neuts (auto) 9.9 H (2.0-8.3) x10*3/uL Absolute Nucleated RBC 0.000 (0.0-0.012) X10*3/uL Nucleated RBC % (auto) 0.0 (0.0-0.2) /100WBC PT 12.2 (10.9-12.4) SEC INR 1.0 (0.9-1.1) VBG pH 7.40 (7.32-7.43) VBG pCO2 51 mmHg VBG pO2 32 mmHg VBG HCO3 32 H (22-26) mmol/L VBG O2 Saturation 46.0 % VBG Base Excess 6.4 mmol/L Sodium 139 (135-145) mmol/L Potassium 3.9 (3.3-5.1) mmol/L Chloride 103 (96-108) mmol/L Carbon Dioxide 27 (22-29) mmol/L Anion Gap 13 (12-20) BUN 16 (9-16) mg/dL Creatinine 0.73 (0.5-1.4) mg/dL Estim Creat Clear Calc 240.7 Estimated GFR > 60 POC Glucose 63 (60-115) mg/dL Random Glucose 89 (60-115) mg/dL Lactic Acid 1.0 (0.5-2.0) mmol/L Calcium 9.1 (8.4-10.2) mg/dL Magnesium 1.9 (1.6-2.6) mg/dL Total Bilirubin 0.4 (0.0-1.0) mg/dL AST 30 (5-37) U/L ALT 20 (0-40) U/L Alkaline Phosphatase 66 (39-117) U/L Troponin I High Sens < 2.7 (<3.5-35.0) ng/L B-Natriuretic Peptide 19 (<100) pg/mL Total Protein 8.3 H (6.5-8.0) g/dL Albumin 3.6 (3.5-5.0) g/dL Influenza Type A (PCR) NEGATIVE (Negative) Influenza Type B (PCR) NEGATIVE (Negative) RSV RNA Qual (PCR) NEGATIVE (Negative) SARS-CoV-2 RNA (RT-PCR) NEGATIVE (Negative) Independent Interpretation I performed an independent interpretation of an: EKG and Plain X-Ray Interpretation: Normal sinus rhythm heart rate 73 beats per minute normal intervals normal axis no acute ST-T changes no acute ischemia Radiology Impression Discussion of test interpretation with radiology: I have reviewed the radiologist's reading. Radiologist Impression: No infiltrate Discharge Plan Discharge Clinical Impression: Moderate persistent asthma with (acute) exacerbation Patient Disposition: Home, Self-Care Instructions: Asthma (ED) Additional Instructions: Continue to use your nebulizer treatment every 4-6 hours as needed Prednisone as prescribed Follow up with your PCP Report to ER if not better Prescriptions: New prednisone 20 mg tablet 60 mg PO DAILY Qty: 15 0RF No Action furosemide 40 mg tablet 40 mg PO DAILY atorvastatin 20 mg tablet 20 mg PO BEDTIME albuterol sulfate 2.5 mg /3 mL (0.083 %) solution for nebulization 2.5 mg inhalation Q6H PRN (Reason: wheezing) pentoxifylline 400 mg tablet extended release 400 mg PO TID amlodipine 10 mg tablet 10 mg PO DAILY pantoprazole 40 mg tablet,delayed release (DR/EC) 40 mg PO DAILY@0630 montelukast 10 mg tablet 10 mg PO BEDTIME hydrochlorothiazide 25 mg tablet 25 mg PO DAILY albuterol sulfate [Ventolin HFA] 90 mcg/actuation HFA aerosol inhaler 2 puff INHALATION Q6H PRN (Reason: Shortness Of Breath Or Wheezing) irbesartan 300 mg tablet 300 mg PO DAILY levocetirizine 5 mg tablet 5 mg PO DAILY Trelegy Ellipta 200-62.5-25 mcg blister with device 1 ea INHALATION DAILY Ozempic 0.25 mg or 0.5 mg (2 mg/3 mL) pen injector 0.25 mg subcut MO@0900 acetaminophen [Tylenol] 325 mg Tablet 650 mg PO Q6H PRN (Reason: Pain) oseltamivir [Tamiflu] 75 mg Capsule 75 mg PO Q12H Qty: 6 0RF prednisone 10 mg tablet See Rx Instructions .ROUTE .COMPLEX Qty: 42 0RF Rx Instructions: 40 mg (4 tabs) twice daily x 2 days, then 30 mg (3 tabs) twice daily x 2 days, then 20 mg (2 tabs) twice daily x 2 days, then 10 mg (1 tab) twice daily x 2 days, then 5 mg (half tab) twice daily x 2 days Print Language: Mauritian
[2024-05-17 19:20] VITALS: BP 157/80; BP 168/92; PULSE 74; PULSE 78; RESP 20; TEMP 36.7; O2SAT 97; O2SAT 98; BMI 89.9
--- NOTE | 2024-05-17 19:20 | ECG_ITS ---
Test Reason : SOB Blood Pressure : */* mmHG Vent. Rate : 73 BPM Atrial Rate : 73 BPM P-R Int : 156 ms QRS Dur : 100 ms QT Int : 422 ms P-R-T Axes : 48 -7 21 degrees QTcB Int : 464 ms Normal sinus rhythm Normal ECG When compared with ECG of 02-Mar-2023 19:41, No significant change was found Referred By: Yang Cameron Electronically Signed By: Colt Rawls
[2024-05-17 19:27] LABS: Glucose, Whole Blood 63 mg/dL (60-115)
[2024-05-17 19:37] LABS: MANUAL DIFF FLAG NO
[2024-05-17 19:39] LABS: Basophils Absolute Auto 0.1 X10*3/uL (0.0-0.2); Basophils Percent Auto 0.4 % (0-2); Eosinophils Absolute Auto 0.1 X10*3/uL (0.0-0.4); Eosinophils Percent Auto 0.8 % (0-4); Hematocrit 39.4 % (42.0-52.0); Hemoglobin 12.5 g/dl (14.0-18.0); Imm Gran Abs Auto 0.06 X10*3/uL (0.00-0.03); Imm Gran Pct Auto 0.4 % (0.0-0.4); Lymphocytes Absolute Auto 3.2 X10*3/uL (1.2-4.9); Lymphocytes Percent Auto 22.2 % (20-40); Mean Corpuscular HGB Conc 31.7 g/dl (31.0-36.0); Mean Corpuscular Hemoglobin 25.6 pg (27.0-33.0); Mean Corpuscular Volume 80.6 fL (80.0-98.0); Mean Platelet Volume 8.9 fL (9.4-12.4); Monocytes Percent Auto 6.9 % (2-11); Neutrophils Absolute Auto 9.9 x10*3/uL (2.0-8.3); Neutrophils Percent Auto 69.3 % (45-73); Platelet Count 246 X10*3/uL (160-400); Red Blood Count 4.89 X10*6/uL (4.60-5.80); Red Cell Distribution Width 16.3 % (11.0-16.0); White Blood Count 14.3 X10*3/uL (4.8-10.8)
[2024-05-17 19:48] LABS: VBG Base Excess 6.4 mmol/L; VBG HCO3 32 mmol/L (22-26); VBG pCO2 51 mmHg; VBG pO2 32 mmHg
[2024-05-17 19:49] LABS: Venous Blood Gas Refer to POC result
[2024-05-17 19:51] LABS: Prothrombin Time 12.2 SEC (10.9-12.4)
[2024-05-17 19:53] LABS: Alanine Aminotransferase 20 U/L (0-40); Albumin Level 3.6 g/dL (3.5-5.0); Alkaline Phosphatase 66 U/L (39-117); Anion Gap 13 (12-20); Aspartate Amino Transferase 30 U/L (5-37); Bilirubin Total 0.4 mg/dL (0.0-1.0); Blood Urea Nitrogen 16 mg/dL (9-16); Calcium 9.1 mg/dL (8.4-10.2); Carbon Dioxide 27 mmol/L (22-29); Chloride 103 mmol/L (96-108); Creatinine Clr Calc Pharmacy 240.7; Estimated Glomerular Filt Rate > 60; Glucose Random 89 mg/dL (60-115); Magnesium 1.9 mg/dL (1.6-2.6); Potassium 3.9 mmol/L (3.3-5.1); Sodium 139 mmol/L (135-145); Total Protein 8.3 g/dL (6.5-8.0)
[2024-05-17 19:59] LABS: B Type Natriuretic Peptide 19 pg/mL (<100)
[2024-05-17 20:01] LABS: Troponin-I High Sensitivity < 2.7 ng/L (<3.5-35.0)
--- NOTE | 2024-05-17 20:12 | PC.NURSE ---
pt biba from home, a&ox4, respirations even and unlabored. pt reporting x3 weeks of shortness of breath and wheezing. pt reports he has been using his inhalers with no releif. ems gave pt solumedrol and a breathing treatment which he states made him feel better. 20G placed in left forearm,s labs obtained. pt nsr on tele 80-82 bpm, healthcare interpreter at bedside. at bedside.
[2024-05-17 20:30] LABS: Influenza A PCR NEGATIVE (Negative); Influenza B PCR NEGATIVE (Negative); Resp Syncy Virus RNA Qual PCR NEGATIVE (Negative); SARS COV2 PCR INHOUSE NEGATIVE (Negative)
[2024-05-17 22:05] VITALS: BP 146/78; PULSE 77; RESP 18; TEMP 36.9; O2SAT 98
[2024-05-17 22:07] VITALS: BP 146/78; PULSE 77; RESP 18; TEMP 36.9; O2SAT 98
== END 2024-05-17 22:33 | disposition home or self-care (01) ==
PROVIDERS: Emergency Provider Internal Medicine
DX: J45.41 Moderate persistent asthma with (acute) exacerbation (principal); R60.0 Localized edema; Z03.818 Encounter for observation for suspected exposure to other biological agents ruled out; R06.02 Shortness of breath; R05.9 Cough, unspecified; E11.9 Type 2 diabetes mellitus without complications; I10 Essential (primary) hypertension; E78.5 Hyperlipidemia, unspecified; Z79.02 Long term (current) use of antithrombotics/antiplatelets; Z79.899 Other long term (current) drug therapy
CPT/HCPCS: 0241U; 36415; 71045; 80053; 82803; 82947; 83605; 83735; 83880; 84484; 85025; 85610; 87040; 93005; 99283; 99285

== ENCOUNTER → 2024-05-17 19:20 | Outpatient (BNV) | payer OTHER, SELFPAY | PROVIDERS: Emergency Provider Internal Medicine; Visit Provider Radiology Diagnostic Radiology | DX: R06.02 Shortness of breath (principal) | CPT/HCPCS: 71045 ==

== ENCOUNTER → 2024-05-17 19:20 | Outpatient (BNV) | payer OTHER, SELFPAY | PROVIDERS: Emergency Provider Internal Medicine; Visit Provider Internal Medicine Cardiovascular Disease | DX: R06.02 Shortness of breath (principal) | CPT/HCPCS: 93010 ==

== ENCOUNTER 2024-06-18 19:11 | Emergency (ER) | payer OTHER, SELFPAY ==
--- NOTE | ~2024-06-18 | XR_ITS ---
CLINICAL HISTORY: chest pain 2 view chest x-ray Comparison: 05/18/2015 Findings: New small left pleural effusion. Lungs are otherwise clear. No pneumothorax. Heart size normal. No acute bony abnormalities. Impression: New small left pleural effusion This document has been electronically signed by: Tj Hilton MD on 06/18/2024 20:10:32
--- NOTE | 2024-06-18 19:13 | ECG_ITS ---
Test Reason : chest pain Blood Pressure : */* mmHG Vent. Rate : 71 BPM Atrial Rate : 71 BPM P-R Int : 154 ms QRS Dur : 98 ms QT Int : 426 ms P-R-T Axes : 44 -2 40 degrees QTcB Int : 462 ms Normal sinus rhythm Normal ECG When compared with ECG of 17-May-2024 19:33, No significant change was found Referred By: Irais Patel Electronically Signed By: LOLA BARNES
--- NOTE | 2024-06-18 19:27 | ED_ITS ---
HPI - General Adult General Chief complaint: Chest Pain Stated complaint: chest pain Time Seen by Provider: 06/18/24 21:24 Source: patient Mode of arrival: ambulatory Limitations: no limitations History of Present Illness ED Provider: DR. Dugan HPI narrative: Patient is a 53-year-old male with history of morbid obesity, mixed HLD, asthma not home supplemental oxygen, HTN, KELSEY, T2DM, umbilical hernia repair presenting to the ED with complaint of chest and RUQ abdominal pain for around 4 days. Taking ibuprofen and aleve. Declined any recent travel, no recent prolonged immobilization, patient has suffered from chronic lymphedema to both lower extremities no lower extremity swelling or tenderness, in is mainly in the right side of the chest when he takes a deep breath, feel it superficial and not deep, no radiation to the pain, no trauma to the chest wall, no shortness of breath, no coughing, no fever, no chills. Pain is improved when patient take ibuprofen at home otherwise No clear aggravating factor or relieving factor, pain is not affected by food. Related Data Home Medications ?Medication ?Instructions ?Recorded ?Confirmed acetaminophen 325 mg tablet 650 mg PO Q6H PRN Pain 03/02/23 03/02/23 (Tylenol) albuterol sulfate 2.5 mg/3 mL 2.5 mg inhalation Q6H PRN wheezing 03/02/23 03/02/23 (0.083 %) solution for nebulization albuterol sulfate 90 mcg/actuation 2 puff inhalation Q6H PRN 03/02/23 03/02/23 aerosol inhaler (Ventolin HFA) Shortness Of Breath Or Wheezing amlodipine 10 mg tablet 10 mg PO DAILY 03/02/23 03/02/23 atorvastatin 20 mg tablet 20 mg PO BEDTIME 03/02/23 03/02/23 fluticasone fur. 200 mcg-umeclid 1 ea inhalation DAILY 03/02/23 03/02/23 62.5 mcg-vilant 25 mcg inhalat.powder (Trelegy Ellipta) furosemide 40 mg tablet 40 mg PO DAILY 03/02/23 03/02/23 hydrochlorothiazide 25 mg tablet 25 mg PO DAILY 03/02/23 03/02/23 irbesartan 300 mg tablet 300 mg PO DAILY 03/02/23 03/02/23 levocetirizine 5 mg tablet 5 mg PO DAILY 03/02/23 03/02/23 montelukast 10 mg tablet 10 mg PO BEDTIME 03/02/23 03/02/23 pantoprazole 40 mg tablet,delayed 40 mg PO DAILY@0630 03/02/23 03/02/23 release pentoxifylline 400 mg 400 mg PO TID 03/02/23 03/02/23 tablet,extended release semaglutide 0.25 mg or 0.5 mg (2 0.25 mg subcut MO@0900 03/02/23 03/02/23 mg/3 mL) subcutaneous pen injector (Ozempic) Previous Rx's ?Medication ?Instructions ?Recorded oseltamivir 75 mg capsule (Tamiflu) 75 mg PO Q12H #6 caps 03/04/23 prednisone 10 mg tablet See Rx Instructions .Route 03/04/23 .COMPLEX #42 tabs prednisone 20 mg tablet 60 mg (3 x 20 mg) PO DAILY #15 tabs 05/17/24 Allergies Allergy/AdvReac Type Severity Reaction Status Date / Time Penicillins [PCN] Allergy Rash Verified 06/18/24 19:30 Review of Systems 2 Review of Systems: All other systems are reviewed and are negative Constitutional: Reports as per HPI and Reports no additional constitutional complaints Eyes: Reports as per HPI and Reports no additional eye complaints Reports system reviewed and no additional complaints, except as documented Cardiovascular: Reports as per HPI and Reports no additional cardiovascular complaints Respiratory: Reports as per HPI and Reports no additional respiratory complaints Gastrointestinal: Reports as per HPI and Reports no additional gastrointestinal complaints Genitourinary: Reports no additional female genitourinary complaints Musculoskeletal: Reports no additional musculoskeletal complaints Skin/Breast: Reports system reviewed and no additional complaints, except as docu Psychiatric: Reports no additional psychiatric complaints Endocrine: Reports no additional endocrine complaints Hematologic/Lymphatic: Reports no additional hematologic/lymphatic complaints Allergic/Immunologic: Reports no additional allergic/immunologic complaints Reports system reviewed and no additional complaints, except as documented and Reports Abnormal speech present [facility] Past Medical History Medical History Mixed hyperlipidemia Non-insulin dependent type 2 diabetes mellitus KELSEY (obstructive sleep apnea) Essential hypertension Asthma Social History Social History Household Members: Family Housing: Apartment Do you presently have visiting nurse or other home services: No Alcohol intake: never Patient Tobacco Use Status: Never used Tobacco Smoked in Last 30 Days: No Second Hand Smoke Exposure: No Use of substances other than those prescribed or required for medical reasons: No Advance Directives: No Advance Directives Information Provided: Yes Do you have a plan to hurt others: No Plan service: No Physical Exam ED Vital Signs: Vital Signs - 24 hr 06/18/24 19:28 06/18/24 21:21 06/19/24 01:03 Temperature 98.1 F 98.3 F 98.2 F Pulse Rate 71 73 69 Respiratory Rate 18 20 20 Blood Pressure 170/85 H 170/75 H 127/50 L Pulse Oximetry 99 96 96 Oxygen Delivery Method Room Air Room Air Room Air BMI result Body Mass Index 74.9 Vital signs have been reviewed and appear to be correct. Blood pressure elevated. Heart rate normal. Respiratory rate normal. Temperature normal. Oxygen saturation normal. Appearance: Alert. Oriented X3. No acute distress. Head: Normal external exam. Normocephalic. Atraumatic. No Hernandez signs noted. No raccoon eyes noted Eyes: PERRLA. EOMI. Conjunctiva and sclera normal. Eyelids normal. ENT: TM's Normal. Pharynx normal. Uvula midline. Moist mucous membranes. No trismus noted. No drooling noted. No muffled voice noted. Neck: Normal inspection. Neck supple. FROM. No adenopathy. Thyroid Normal. No meningeal signs. No neck mass noted. CVS: Normal heart rate and rhythm. Heart sound normal. No murmurs noted. Pulses normal throughout. Respiratory: No respiratory distress. Painless inspiration. Breath sounds normal. No wheezes/rales/rhonchi noted. Chest nontender. No accessory muscle usage noted or decreased air movement noted. Abdomen: Soft and nontender. Bowel sounds normal in all 4 quadrants. No distention noted. No organomegaly noted. No visible injury noted. Back: No CVA tenderness. Full range of motion noted. Skin: Skin warm and dry. Normal skin color. Normal skin turgor. No rashes/lesions/lacerations noted. Extremities: No lower extremity edema. Extremities exhibit normal range of motion. Extremities nontender. Neuro: Oriented X 3. Cranial nerve exam: II-XII are grossly intact No motor deficit. No sensory deficit. Reflexes normal. Course Course Course Narrative: This is a rapid medical exam performed by Joceline Patel NP: Additional HPI, ROS, PE not included below will be deferred to primary provider. Patient is a 53-year-old male with history of morbid obesity, mixed HLD, asthma, HTN, KELSEY, T2DM, umbilical hernia repair presenting to the ED with complaint of chest and RUQ abdominal pain for around 4 days. Taking ibuprofen and aleve. Plan: EKG, labs, CXR Reevaluation(s) Reevaluation #1: Morbid obese 53-year-old male with right-sided chest pain is at low risk, vital signs stable with O2 sat 96%, normal RR an HR. No risk for pulmonary embolism, given the patient weight CT is not doable in our facility slight elevation of D- dimer, pretest probability is very low on this patient therefore will rule it out clinically. X-ray is showing new small pleural effusion patient's symptoms is mostly on the right side. Patient was instructed to take NSAIDs if needed for pain. LFTs are within normal, no right upper quadrant tenderness. Time: 01:29 Medical Decision Making Differential Diagnosis Differential Diagnoses: The differential diagnosis associated with the presentation includes (Pneumonia, pneumothorax, pleurisy, pulmonary embolism, ACS, electrolyte derangement, severe anemia.) Admission/Observation Consideration of admission/observation: Escalation of care including admission/observation considered Lab Data MDM Lab Attestation statement: I reviewed the patient's lab results. 06/18/24 19:30 06/18/24 19:30 Labs: Lab Results 06/18/24 06/18/24 Range/Units 19:30 22:32 WBC 12.3 H (4.8-10.8) X10*3/uL RBC 4.54 L (4.60-5.80) X10*6/uL Hgb 11.8 L (14.0-18.0) g/dl Hct 38.0 L (42.0-52.0) % MCV 83.7 (80.0-98.0) fL MCH 26.0 L (27.0-33.0) pg MCHC 31.1 (31.0-36.0) g/dl RDW 16.8 H (11.0-16.0) % Plt Count 254 (160-400) X10*3/uL MPV 8.7 L (9.4-12.4) fL Immature Gran % (Auto) 0.3 (0.0-0.4) % Neut % (Auto) 65.7 (45-73) % Lymph % (Auto) 22.9 (20-40) % Scurry % (Auto) 7.6 (2-11) % Eos % (Auto) 3.3 (0-4) % Baso % (Auto) 0.2 (0-2) % Lymph # (Auto) 2.8 (1.2-4.9) X10*3/uL Scurry # (Auto) 0.9 (0.1-1.2) X10*3/uL Eos # (Auto) 0.4 (0.0-0.4) X10*3/uL Baso # (Auto) 0.0 (0.0-0.2) X10*3/uL Abs Immat Gran (auto) 0.04 H (0.00-0.03) X10*3/uL Absolute Neuts (auto) 8.0 (2.0-8.3) x10*3/uL Absolute Nucleated RBC 0.000 (0.0-0.012) X10*3/uL Nucleated RBC % (auto) 0.0 (0.0-0.2) /100WBC PT 12.2 (10.9-12.4) SEC INR 1.0 (0.9-1.1) D-Dimer High Sensitivty 616 NG/ML Sodium 142 (135-145) mmol/L Potassium 3.9 (3.3-5.1) mmol/L Chloride 107 (96-108) mmol/L Carbon Dioxide 27 (22-29) mmol/L Anion Gap 12 (12-20) BUN 16 (9-16) mg/dL Creatinine 0.81 (0.5-1.4) mg/dL Estim Creat Clear Calc 234.1 Estimated GFR > 60 Random Glucose 91 (60-115) mg/dL Calcium 8.8 (8.4-10.2) mg/dL Magnesium 2.1 (1.6-2.6) mg/dL Total Bilirubin 0.3 (0.0-1.0) mg/dL AST 33 (5-37) U/L ALT 22 (0-40) U/L Alkaline Phosphatase 69 (39-117) U/L Troponin I High Sens < 2.7 2.8 (<3.5-35.0) ng/L Total Protein 7.1 (6.5-8.0) g/dL Albumin 3.7 (3.5-5.0) g/dL Lipase 11 (8-78) U/L Independent Interpretation I performed an independent interpretation of an: Plain X-Ray (Chest: New small left pleural effusion.) Radiology Impression Discussion of test interpretation with radiology: I have reviewed the radiologist's reading. Discharge Plan Discharge Clinical Impression: Pleurisy Patient Disposition: Home, Self-Care Instructions: Pleurisy (ED) Additional Instructions: Take ibuprofen 200 mg ([id number]) every 6 hours if needed for pain. Prescriptions: No Action furosemide 40 mg tablet 40 mg PO DAILY atorvastatin 20 mg tablet 20 mg PO BEDTIME albuterol sulfate 2.5 mg /3 mL (0.083 %) solution for nebulization 2.5 mg inhalation Q6H PRN (Reason: wheezing) pentoxifylline 400 mg tablet extended release 400 mg PO TID amlodipine 10 mg tablet 10 mg PO DAILY pantoprazole 40 mg tablet,delayed release (DR/EC) 40 mg PO DAILY@0630 montelukast 10 mg tablet 10 mg PO BEDTIME hydrochlorothiazide 25 mg tablet 25 mg PO DAILY albuterol sulfate [Ventolin HFA] 90 mcg/actuation HFA aerosol inhaler 2 puff INHALATION Q6H PRN (Reason: Shortness Of Breath Or Wheezing) irbesartan 300 mg tablet 300 mg PO DAILY levocetirizine 5 mg tablet 5 mg PO DAILY Trelegy Ellipta 200-62.5-25 mcg blister with device 1 ea INHALATION DAILY Ozempic 0.25 mg or 0.5 mg (2 mg/3 mL) pen injector 0.25 mg subcut MO@0900 acetaminophen [Tylenol] 325 mg Tablet 650 mg PO Q6H PRN (Reason: Pain) oseltamivir [Tamiflu] 75 mg Capsule 75 mg PO Q12H Qty: 6 0RF prednisone 10 mg tablet See Rx Instructions .ROUTE .COMPLEX Qty: 42 0RF Rx Instructions: 40 mg (4 tabs) twice daily x 2 days, then 30 mg (3 tabs) twice daily x 2 days, then 20 mg (2 tabs) twice daily x 2 days, then 10 mg (1 tab) twice daily x 2 days, then 5 mg (half tab) twice daily x 2 days prednisone 20 mg tablet 60 mg PO DAILY Qty: 15 0RF Referrals: Javier Walker MD [Primary Care Provider] - Print Language: [place]
[2024-06-18 19:28] VITALS: BP 170/85; PULSE 71; RESP 18; TEMP 36.7; O2SAT 99; BMI 74.9
[2024-06-18 19:32] LABS: MANUAL DIFF FLAG NO
[2024-06-18 19:41] LABS: Basophils Percent Auto 0.2 % (0-2); Eosinophils Absolute Auto 0.4 X10*3/uL (0.0-0.4); Eosinophils Percent Auto 3.3 % (0-4); Hemoglobin 11.8 g/dl (14.0-18.0); Imm Gran Abs Auto 0.04 X10*3/uL (0.00-0.03); Imm Gran Pct Auto 0.3 % (0.0-0.4); Lymphocytes Absolute Auto 2.8 X10*3/uL (1.2-4.9); Lymphocytes Percent Auto 22.9 % (20-40); Mean Corpuscular HGB Conc 31.1 g/dl (31.0-36.0); Mean Corpuscular Volume 83.7 fL (80.0-98.0); Mean Platelet Volume 8.7 fL (9.4-12.4); Monocytes Absolute Auto 0.9 X10*3/uL (0.1-1.2); Monocytes Percent Auto 7.6 % (2-11); Neutrophils Percent Auto 65.7 % (45-73); Platelet Count 254 X10*3/uL (160-400); Red Blood Count 4.54 X10*6/uL (4.60-5.80); Red Cell Distribution Width 16.8 % (11.0-16.0); White Blood Count 12.3 X10*3/uL (4.8-10.8)
[2024-06-18 19:46] LABS: Prothrombin Time 12.2 SEC (10.9-12.4)
[2024-06-18 20:01] LABS: Alanine Aminotransferase 22 U/L (0-40); Albumin Level 3.7 g/dL (3.5-5.0); Alkaline Phosphatase 69 U/L (39-117); Anion Gap 12 (12-20); Aspartate Amino Transferase 33 U/L (5-37); Bilirubin Total 0.3 mg/dL (0.0-1.0); Blood Urea Nitrogen 16 mg/dL (9-16); Calcium 8.8 mg/dL (8.4-10.2); Carbon Dioxide 27 mmol/L (22-29); Chloride 107 mmol/L (96-108); Creatinine Clr Calc Pharmacy 234.1; Estimated Glomerular Filt Rate > 60; Glucose Random 91 mg/dL (60-115); Lipase 11 U/L (8-78); Magnesium 2.1 mg/dL (1.6-2.6); Potassium 3.9 mmol/L (3.3-5.1); Sodium 142 mmol/L (135-145); Total Protein 7.1 g/dL (6.5-8.0)
[2024-06-18 20:14] LABS: Troponin-I High Sensitivity < 2.7 ng/L (<3.5-35.0)
[2024-06-18 21:21] VITALS: BP 170/75; PULSE 73; RESP 20; TEMP 36.8; O2SAT 96
[2024-06-18 22:45] LABS: D Dimer High Sensitivity 616 NG/ML
[2024-06-18 22:56] LABS: Troponin-I High Sensitivity 2.8 ng/L (<3.5-35.0)
[2024-06-19 01:03] VITALS: BP 127/50; PULSE 69; RESP 20; TEMP 36.8; O2SAT 96
[2024-06-19 01:58] VITALS: BP 127/50; PULSE 69; RESP 20; TEMP 36.8; O2SAT 96
== END 2024-06-19 01:58 | disposition home or self-care (01) ==
PROVIDERS: Registered Nurse Emergency; Emergency Provider Emergency Medicine; PCP Student in an Organized Health Care Education/Training Program
DX: R07.89 Other chest pain (principal); E11.9 Type 2 diabetes mellitus without complications; I10 Essential (primary) hypertension; J45.909 Unspecified asthma, uncomplicated; Z99.81 Dependence on supplemental oxygen; Z79.899 Other long term (current) drug therapy
CPT/HCPCS: 36415; 71046; 80053; 83690; 83735; 84484; 85025; 85379; 85610; 93005; 99284

== ENCOUNTER → 2024-06-18 19:13 | Outpatient (BNV) | payer OTHER, SELFPAY | PROVIDERS: Emergency Provider Emergency Medicine; PCP Student in an Organized Health Care Education/Training Program; Visit Provider Internal Medicine | DX: R07.9 Chest pain, unspecified (principal) | CPT/HCPCS: 93010 ==

== ENCOUNTER → 2024-06-18 19:18 | Outpatient (BNV) | payer OTHER, SELFPAY | PROVIDERS: Visit Provider Radiology Diagnostic Radiology | DX: R07.9 Chest pain, unspecified (principal) | CPT/HCPCS: 71046 ==